=== PATIENT | male | born 1975 ===

== ENCOUNTER 2024-12-09 01:12 | Inpatient (IN) | payer MEDICAID, OTHER ==
[~2024-12-09] VITALS: Ht 185.4 cm; Wt 116.5 kg
--- NOTE | 2024-12-09 01:25 | ED.PDOC ---
History of Present Illness HPI Comments 49 y/o obese M, with a history of diverticulitis, is BIBA from private residence for c/c shortness of breath and lightheadedness. Per EMS report, patient endorses on 3-4x week history of intermittent symptoms. On scene, patient was noted to have been found in AFib RVR, with no endorsement of any cardiac hist ory. Patient also reports on having decrease urine output in addition to said urine being dark in appearance, lately. En route, patient was given 300ml NS bolus. Denial of any chest pain, cough, congestion, wheezing, or further associated symptoms. Time Seen by MD: 01:15 Reviewed Notes: Nurses Notes, Medications, Allergies Allergies: Coded Allergies: NO KNOWN ALLERGIES (Unverified , 12/09/24) Information Source: Patient, Emergency Med Personnel Mode of Arrival: EMS Past Medical History Past Medical History (Other): Diverticulitis All Other Systems: Reviewed and Negative (Comprehensive systems review obtained and negative except for what is stated in the HPI.) Physical Exam General Appearance: No Apparent Distress, Obese HEENT: Normal ENT Inspection, Pharynx Normal, TMs Normal Neck: Full Range of Motion, Non-Tender, Normal, Normal Inspection Respiratory: Chest Non-Tender, Lungs Clear, No Accessory Muscle Use, No Respiratory Distress, Normal Breath Sounds Cardiovascular: Irregular (irregular, irregular rhythm but rate is normal ), No Edema, No JVD, No Murmur, No Gallop, Normal Peripheral Pulses Breast Exam: Deferred Gastrointestinal: No Organomegaly, Non Tender, No Pulsatile Mass, Normal Bowel Sounds, Soft Genitalia: Deferred Pelvic: Deferred Rectal: Deferred Extremities: No calf tenderness, Normal capillary refill, Normal inspection, Normal range of motion, Non-tender, No pedal edema Musculoskeletal : Apperance: Normal Neurologic: Alert, client relations specialist II-XII nml as Tested, No Motor Deficits, Normal Affect, Normal Mood, No Sensory Deficits Cerebellar Function: Normal Reflexes: Normal Skin: Dry, Normal Color, Warm Lymphatic: No Adenopathy Was a procedure done? Was a procedure done?: No EKG EKG : [place]: Normal Cardiac Rhythm: Afib Block: None Hypertrophy: None ST: Normal Differential Dx Considerations may include: New onset of AFib, arrhythmia, electrolyte imbalance, dehydration, among others X-Ray, Labs, Meds, VS Vital Signs Date Time Temp Pulse Resp B/P (MAP) Pulse Ox O2 Delivery O2 Flow Rate FiO2 12/09/24 01:54 155 149/111 12/09/24 01:46 149/114 (126) 12/09/24 01:35 156 149/114 12/09/24 01:27 163 30 97 12/09/24 01:15 98.0 159 22 114/82 100 98.0 12/09/24 01:15 100 Room Air* 0 21 12/09/24 01:13 159 Lab Test 12/09/24 02:25 12/09/24 01:33 Range/Units Troponin I High Sensitivity Pending 76 *H </=54 ng/L White Blood Count 9.2 4.4-10.8 10^3/uL Red Blood Count 4.89 4.5-5.90 10^6/uL Hemoglobin 15.5 13.5-17.5 g/dL Hematocrit 45.6 41.0-53.0 % Mean Corpuscular Volume 93.2 80.0-100.0 fL Mean Corpuscular Hemoglobin 31.7 28.0-32.0 pg Mean Corpuscular Hemoglobin Concent 34.0 32.0-36.0 g/dL Red Cell Distribution Width 13.7 11.8-14.3 % Platelet Count 360 140-450 10^3/uL Mean Platelet Volume 8.7 6.9-10.8 fL Neutrophils (%) (Auto) 70.2 37.0-80.0 % Lymphocytes (%) (Auto) 17.6 10.0-50.0 % Monocytes (%) (Auto) 10.7 0.0-12.0 % Eosinophils (%) (Auto) 0.4 0.0-7.0 % Basophils (%) (Auto) 1.1 0.0-2.0 % Neutrophils # (Auto) 6.5 1.6-8.6 10 ^3/uL Lymphocytes # (Auto) 1.6 0.4-5.4 10 ^3/uL Monocytes # (Auto) 1.0 0-1.3 10 ^3/uL Eosinophils # (Auto) 0 0-0.8 10 ^3/uL Basophils # (Auto) 0.1 0-0.2 10 ^3/uL Nucleated Red Blood Cells 0.0 % Prothrombin Time 15.7 H 9.3-11.8 sec Prothrombin Time INR 1.55 H 0.9-1.15 Activated Partial Thromboplast Time 27.6 24.5-34.5 SEC Sodium Level 138 136-145 mmol/L Potassium Level 4.4 3.5-5.1 mmol/L Chloride Level 106 98-107 mmol/L Carbon Dioxide Level 20 20-31 mmol/L Anion Gap 12 5-15 Blood Urea Nitrogen 12 9-23 mg/dL Creatinine 1.16 0.700-1.30 mg/dL Glomerular Filtration Rate Calc 77 >90 mL/min BUN/Creatinine Ratio 10.3 10.0-20.0 Serum Glucose 132 H 74-106 mg/dL Calcium Level 8.7 8.7-10.4 mg/dL Magnesium Level 2.1 1.6-2.6 mg/dL Total Bilirubin 2.6 H 0.2-1.0 mg/dL Aspartate Amino Transferase (AST) 127 H 13-40 U/L Alanine Aminotransferase (ALT) 101 H 7-40 U/L Alkaline Phosphatase 130 H 46-116 U/L B-Type Natriuretic Peptide 909.46 0-100 pg/mL Total Protein 7.0 5.7-8.2 g/dL Albumin 4.2 3.2-4.8 g/dL Thyroid Stimulating Hormone (TSH) Pending Free Thyroxine (T4) Calculated Pending Current Medications Medications (Trade) Dose Ordered Sig/Fabian Route Start Time Stop Time Status Last Admin Aspirin 162 mg ONCE ONCE PO 12/09/24 01:30 12/09/24 01:31 DC 12/09/24 01:35 Metoprolol Tartrate (Lopressor) 5 mg Q5M IV 12/09/24 01:30 12/09/24 01:41 DC 12/09/24 01:35 [place] [id number] Ph: [phone] DIAGNOSTIC IMAGING Diagnostic Imaging Report : [id number] Signed PATIENT: SANDY EVANS ACCT: [id number] UNIT: [id number] : 1975 LOC: ER ROOM / BED: / AGE / SEX: 49 / M ADM STATUS: REG ER SERVICE 0121 ORDERING PHYSICIAN: GABBIE DANIEL MD PROCEDURE(s): CXRP - CHEST PORTABLE REASON: sob ORDER NUMBER(s): [id number], ACCESSION NUMBER(s): [id number] CHEST RADIOGRAPH Indication: sob Technique: Single frontal view of the chest was obtained COMPARISON: None FINDINGS: Lines and Tubes: None Lungs: Mild diffuse increased prominence of the pulmonary vasculature. No evidence of focal consolidation. Pleura: No effusion. No pneumothorax. Cardiomediastinal contours: Cardiomegaly. Bones: Unremarkable IMPRESSION: 1. Cardiomegaly and mild diffuse increased prominence of the pulmonary vasculature. ATED BY: SHAHEED MINER MD DICTATED DATE/TIME: 12/09/24138 SIGNED BY: SHAHEED MINER MD SIGNED DATE/TIME: 12/09/24138 CC: Time of 1ST Reevaluation: 01:45 Reevaluation 1ST: Unchanged Patient Education/Counseling: Diagnosis, Treatment Family Education/Counseling: No Family Present SEPSIS Sepsis Screen Physician Orders Chest Portable (12/09/24 01:21) Thyroid Stimulating Hormone (12/09/24 01:21) Urinalysis (12/09/24 01:21) Electrocardigram (12/09/24 01:21) Troponin-I Hs (12/09/24 02:21) Troponin-I Hs (12/09/24 04:21) Drug Screen (12/09/24 01:28) Free T4 (Free Thyroxine) (12/09/24 01:28) Amiodarone 360mg/200ml Premix (Nexterone (12/09/24 02:30) Amiodarone 360mg/200ml Premix (Nexterone (12/09/24 08:30) Vital Signs Date Time Temp Pulse Resp B/P (MAP) Pulse Ox O2 Delivery O2 Flow Rate FiO2 12/09/24 01:54 155 149/111 12/09/24 01:46 149/114 (126) 12/09/24 01:35 156 149/114 12/09/24 01:27 163 30 97 12/09/24 01:15 98.0 159 22 114/82 100 98.0 12/09/24 01:15 100 Room Air* 0 21 12/09/24 01:13 159 Laboratory Tests Test 12/09/24 01:33 White Blood Count 9.2 10^3/uL (4.4-10.8) Medications Medications Dose Ordered Sig/Fabian Route Start Time Stop Time Status Last Admin Dose Admin Aspirin 162 mg ONCE ONCE PO 12/09/24 01:30 12/09/24 01:31 DC 12/09/24 01:35 Metoprolol Tartrate 5 mg Q5M IV 12/09/24 01:30 12/09/24 01:41 DC 12/09/24 01:35 Departure 1 Departure Time of Disposition: 02:38 Impression: Primary Impression: Atrial fibrillation with rapid ventricular response Additional Impression: New onset atrial fibrillation Disposition: ADMITTED INPATIENT Admit to: Tele Condition: Guarded Discharged With: Self Comments 49-year-old male with a history of methamphetamine abuse now with new onset atrial fibrillation. He has been tachycardic in the 150s. We tried to give metoprolol but it did not seem to improve the rate much. We started a amiodarone drip. This improved the rate slowly. Patient will need admission for supportive care and further workup. Critical Care Note Critical Care Time?: Yes (35 min-critical care time only) Critical care comment: Total critical care time: Approximately 36 minutes Due to a high probability of clinically significant, life threatening deterioration, the patient required my highest level of preparedness to intervene emergently and I personally spent this critical care time directly and personally managing the patient. This critical care time included obtaining a history; examining the patient; pulse oximetry; ordering and review of studies; arranging urgent treatment with development of a management plan; evaluation of patient's response to treatment; frequent reassessment; and, discussions with other providers. This critical care time was performed to assess and manage the high probability of imminent, life-threatening deterioration that could result in multi-organ failure. It was exclusive of separately billable procedures and treating other patients. Stability Stability form required: No Heart Score Heart Score: Heart Score Response (Comments) Value History Moderate Suspicious 1 EKG Repolarization Disturb 1 Age 45-64 1 Risk Factors No known risk factors 0 Troponin 1-2 x's Normal limit 1 Total 4 I personally scribed for GABBIE DANIEL MD ([email or web address]) on 12/09/24 at 01:25. Electronically submitted by Toi Valero ([email or web address]). I personally scribed for GABBIE DANIEL MD ([email or web address]) on 12/09/24 at 02:03. Electronically submitted by Toi Valero ([email or web address]). GABBIE DANIEL MD Dec 09, 2024 01:25
[2024-12-09] MEDS: METOPROLOL TARTRATE 1MG/1ML-5ML VIAL IV SCH (01:35)
--- NOTE | 2024-12-09 01:41 | DVH ---
CHEST RADIOGRAPH Indication: sob Technique: Single frontal view of the chest was obtained COMPARISON: None FINDINGS: Lines and Tubes: None Lungs: Mild diffuse increased prominence of the pulmonary vasculature. No evidence of focal consolid ation. Pleura: No effusion. No pneumothorax. Cardiomediastinal contours: Cardiomegaly. Bones: Unremarkable IMPRESSION: 1. Cardiomegaly and mild diffuse increased prominence of the pulmonary vasculature.
[2024-12-09 01:58] LABS: Hematocrit 45.6 % (41.0-53.0); Hemoglobin 15.5 g/dL (13.5-17.5); Mean Corpuscular Hemoglobin 31.7 pg (28.0-32.0); Mean Corpuscular Volume 93.2 fL (80.0-100.0); Nucleated Red Blood Cells % 0.0 %
[2024-12-09 02:15] LABS: INR 1.55 (0.9-1.15); Partial Thromboplastin Time 27.6 SEC (24.5-34.5); Prothrombin Time 15.7 sec (9.3-11.8)
[2024-12-09] MEDS: AMIODARONE BOLUS KIT 100 ML IV ONE (02:15)
[2024-12-09 02:30] VITALS: PULSE 145; RESP 25; O2SAT 98
[2024-12-09] MEDS: AMIODARONE 360mg/200mL PREMIX 200 ML IV ONE (02:30)
[2024-12-09 02:34] LABS: Alanine Aminotransferase 101 U/L (7-40); Albumin 4.2 g/dL (3.2-4.8); Alkaline Phosphatase 130 U/L (46-116); Anion Gap 12 (5-15); BUN/Creatinine Ratio 10.3 (10.0-20.0); Blood Urea Nitrogen 12 mg/dL (9-23); Calcium 8.7 mg/dL (8.7-10.4); Carbon Dioxide 20 mmol/L (20-31); Chloride 106 mmol/L (98-107); Glucose 132 mg/dL (74-106); Magnesium 2.1 mg/dL (1.6-2.6); Potassium 4.4 mmol/L (3.5-5.1); Sodium 138 mmol/L (136-145); Total Protein 7.0 g/dL (5.7-8.2)
[2024-12-09 02:35] LABS: Bilirubin, Total 2.6 mg/dL (0.2-1.0)
--- NOTE | 2024-12-09 04:15 | ECG ---
[facility] Test Date: 2024-12-09 Test Time: 01:13:24 Pat Name: SANDY EVANS Department: Room: 0240T Gender: M Data Warehousing Specialist: DIANNE : 1975 Requested By: GABBIE DANIEL Order Number: [id number] Reading MD: Greg Lutz Measurements Intervals [place] Rate: 159 P: 0 HI: 0 QRS: -70 QRSD: 90 T: 88 QT: 316 QTc: 515 Interpretive Statements Atrial fibrillation Ventricular premature complex Left anterior fascicular block Probable anteroseptal infarct, old Prolonged QT interval Electronically Signed On 12-12-2024 15:03:31 PDT by Greg Lutz Please click the below link to view image of tracing.
[2024-12-09] MEDS ORDERED: NITROGLYCERIN 0.4 MG SL TAB SL PRN (04:30)
[2024-12-09] MEDS ORDERED: ACETAMINOPHEN 325 MG TAB PO PRN (04:30)
[2024-12-09] MEDS: AMIODARONE 150mg/100ml PREMIX BAG (BOLUS) IV ONE (04:40)
--- NOTE | 2024-12-09 04:41 | DVHHP2 ---
History of Present Illness Reason for Visit: Shortness for breath History of Present Illness 49-year-old male presents for evaluation of shortness for breath. Patient reports a three-week history of worsening shortness for breath with associated palpitations. Patient reports not seeing a primary doctor in over 10 years. He only reports a history of diverticulitis. Currently denies chest pain. On arrival patient was noted to be in AFib with RVR in the 150s. Past Medical History Diverticulitis Past Surgical History Denies Family History Noncontributory Review of Systems Review of Systems Review of systems are negative otherwise addressed in HPI. Allergies: Coded Allergies: NO KNOWN ALLERGIES (Unverified , 12/09/24) Medications Current Medications Medications Dose Ordered Sig/Fabian Route Start Time Stop Time Status Last Admin Dose Admin Amiodarone HCL/ Dextrose 200 ml @ 16.66 mls/ hr Q12H IV 12/09/24 08:30 Furosemide 20 mg BIDD IV 12/09/24 06:00 Lisinopril 10 mg DAILY PO 12/09/24 10:00 Metoprolol Tartrate 25 mg BID PO 12/09/24 22:00 Aspirin 162 mg DAILY PO 12/09/24 10:00 Ondansetron HCl 4 mg Q4HP PRN IV 12/09/24 04:30 Acetaminophen 650 mg Q6HP PRN PO 12/09/24 04:30 Nitroglycerin 0.4 mg Q5MINP PRN SL 12/09/24 04:30 Morphine Sulfate 2 mg Q30M PRN IV 12/09/24 04:30 Apixaban 5 mg BID PO 12/09/24 10:00 Exam Vital Signs Vital Signs Date Time Temp Pulse Resp B/P (MAP) Pulse Ox O2 Delivery O2 Flow Rate FiO2 12/09/24 04:15 123 29 116/97 (103) 96 12/09/24 01:15 98.0 98.0 12/09/24 01:15 Room Air* 0 21 Exam Gen: 49-year-old male in mild distress Skin: Warm, dry, normal color and texture, no rash. HEENT: Normocephalic atraumatic, mucous membranes moist and pink. Neck: Cervical and supraclavicular nodes normal without enlargement, trachea is midline, thyroid gland is normal without masses. Pulmonary: Clear to auscultation and percussion bilaterally. Cardiac: Irregular rhythm Abdomen: Soft, nontender, nondistended, bowel sounds present all 4 quadrants, no guarding, no rigidity, no organomegaly. Extremities: No cyanosis, clubbing, no edema Neuro: Cranial nerves II through XII grossly intact, normal affect and speech, no focal motor deficits. Labs/Xrays ORDERING PHYSICIAN: GABBIE DANIEL MD PROCEDURE(s): CXRP - CHEST PORTABLE REASON: sob ORDER NUMBER(s): [id number], ACCESSION NUMBER(s): [id number] CHEST RADIOGRAPH Indication: sob Technique: Single frontal view of the chest was obtained COMPARISON: None FINDINGS: Lines and Tubes: None Lungs: Mild diffuse increased prominence of the pulmonary vasculature. No evidence of focal consolidation. Pleura: No effusion. No pneumothorax. Cardiomediastinal contours: Cardiomegaly. Bones: Unremarkable IMPRESSION: 1. Cardiomegaly and mild diffuse increased prominence of the pulmonary vasculatu re. Labs Test 12/09/24 02:25 12/09/24 01:33 Range/Units Troponin I High Sensitivity 80 *H </=54 ng/L White Blood Count 9.2 4.4-10.8 10^3/uL Red Blood Count 4.89 4.5-5.90 10^6/uL Hemoglobin 15.5 13.5-17.5 g/dL Hematocrit 45.6 41.0-53.0 % Mean Corpuscular Volume 93.2 80.0-100.0 fL Mean Corpuscular Hemoglobin 31.7 28.0-32.0 pg Mean Corpuscular Hemoglobin Concent 34.0 32.0-36.0 g/dL Red Cell Distribution Width 13.7 11.8-14.3 % Platelet Count 360 140-450 10^3/uL Mean Platelet Volume 8.7 6.9-10.8 fL Neutrophils (%) (Auto) 70.2 37.0-80.0 % Lymphocytes (%) (Auto) 17.6 10.0-50.0 % Monocytes (%) (Auto) 10.7 0.0-12.0 % Eosinophils (%) (Auto) 0.4 0.0-7.0 % Basophils (%) (Auto) 1.1 0.0-2.0 % Neutrophils # (Auto) 6.5 1.6-8.6 10 ^3/uL Lymphocytes # (Auto) 1.6 0.4-5.4 10 ^3/uL Monocytes # (Auto) 1.0 0-1.3 10 ^3/uL Eosinophils # (Auto) 0 0-0.8 10 ^3/uL Basophils # (Auto) 0.1 0-0.2 10 ^3/uL Nucleated Red Blood Cells 0.0 % Prothrombin Time 15.7 H 9.3-11.8 sec Prothrombin Time INR 1.55 H 0.9-1.15 Activated Partial Thromboplast Time 27.6 24.5-34.5 SEC Sodium Level 138 136-145 mmol/L Potassium Level 4.4 3.5-5.1 mmol/L Chloride Level 106 98-107 mmol/L Carbon Dioxide Level 20 20-31 mmol/L Anion Gap 12 5-15 Blood Urea Nitrogen 12 9-23 mg/dL Creatinine 1.16 0.700-1.30 mg/dL Glomerular Filtration Rate Calc 77 >90 mL/min BUN/Creatinine Ratio 10.3 10.0-20.0 Serum Glucose 132 H 74-106 mg/dL Calcium Level 8.7 8.7-10.4 mg/dL Magnesium Level 2.1 1.6-2.6 mg/dL Total Bilirubin 2.6 H 0.2-1.0 mg/dL Aspartate Amino Transferase (AST) 127 H 13-40 U/L Alanine Aminotransferase (ALT) 101 H 7-40 U/L Alkaline Phosphatase 130 H 46-116 U/L B-Type Natriuretic Peptide 909.46 0-100 pg/mL Total Protein 7.0 5.7-8.2 g/dL Albumin 4.2 3.2-4.8 g/dL Thyroid Stimulating Hormone (TSH) 1.24 0.55-4.78 uIU/mL SEPSIS Sepsis Screen Date sepsis recognized/suspect: Dec 09, 2024 Time Sepsis recognized/suspect: 0115 Recent Procedure: No On Antibiotic Therapy: No Respiratory Rate >20: Yes Heart Rate >90: Yes Temp<36 C (96.8 F) or >38.3 C: No SBP <90 or MAP <65 mmHG: No New Acute Mental Status Change: No Is the patient on CPAP, BIPAP,: No Physician Orders Chest Portable (12/09/24 01:21) Troponin-I Hs (12/09/24 04:21) Free T4 (Free Thyroxine) (12/09/24 01:28) Amiodarone 360mg/200ml Premix (Nexterone (12/09/24 02:30) Amiodarone 360mg/200ml Premix (Nexterone (12/09/24 08:30) Drug Screen (12/09/24 04:18) Urinalysis (12/09/24 04:18) D-Dimer (12/09/24 04:18) Furosemide Injection (Lasix Injection) (12/09/24 06:00) * Cardiology Consult (12/09/24 04:18) LIVER (12/09/24 04:20) Lisinopril Tablet (Zestril Tablet) (12/09/24 10:00) Metoprolol Tartrate Tablet (Lopressor Ta (12/09/24 22:00) Aspirin Tablet (12/09/24 10:00) Lipid Panel (12/09/24 04:20) Admit (12/09/24 04:20) Ondansetron Hcl (Zofran) (12/09/24 04:30) Complete Blood Count (12/10/24 04:00) Comprehensive Metabolic Panel (12/10/24 04:00) Cardiac Diet-2gna,Lofat,Lochol (12/09/24 Breakfast) Echo 2d Mode Cardiac Dop (12/09/24 04:20) Condition: Serious (12/09/24 04:20) Acetaminophen Tablet (Tylenol Tablet) (12/09/24 04:30) Bedrest With Bathroom Privileg (12/09/24 04:20) Nitroglycerin Sublingual (Ntrostat Subli (12/09/24 04:30) Morphine Sulfate Injection (12/09/24 04:30) Stat Ekg For Chest Pain (12/09/24 04:20) Notify Of Changes From Base (12/09/24 04:20) Boat Builder For 24 Hours (12/09/24 04:20) Emergency Dysrhythmia Protocol (12/09/24 04:20) Rhythm Strips Once Every Shift (12/09/24 04:20) Oxygen By Nasal Cannula (12/09/24 04:20) Apixaban (Eliquis) (12/09/24 10:00) Metoprolol Tartrate Tablet (Lopressor Ta (12/09/24 04:45) Vital Signs Date Time Temp Pulse Resp B/P (MAP) Pulse Ox O2 Delivery O2 Flow Rate FiO2 12/09/24 04:15 123 29 116/97 (103) 96 12/09/24 01:54 155 149/111 12/09/24 01:46 149/114 (126) 12/09/24 01:40 135 114/76 12/09/24 01:35 156 149/114 12/09/24 01:27 163 30 97 12/09/24 01:15 98.0 159 22 114/82 100 98.0 12/09/24 01:15 100 Room Air* 0 21 12/09/24 01:13 159 Laboratory Tests Test 12/09/24 01:33 White Blood Count 9.2 10^3/uL (4.4-10.8) Medications Medications Dose Ordered Sig/Fabian Route Start Time Stop Time Status Last Admin Dose Admin Amiodarone HCl 100 ml @ 600 mls/hr ONCE ONCE IV 12/09/24 02:15 12/09/24 02:24 DC 12/09/24 02:15 600 MLS/HR Amiodarone HCL/ Dextrose 200 ml @ 33.33 mls/ hr ONCE ONCE IV 12/09/24 02:30 12/09/24 08:30 12/09/24 02:30 33.33 MLS/HR Aspirin 162 mg ONCE ONCE PO 12/09/24 01:30 12/09/24 01:31 DC 12/09/24 01:35 162 MG Metoprolol Tartrate 5 mg Q5M IV 12/09/24 01:30 12/09/24 01:41 DC 12/09/24 01:35 5 MG Assessment/Plan Assessment/Plan Assessment AFib with RVR Possible heart failure Elevated troponin, demand ischemia Transaminitis Obesity Plan Admit the patient to [facility] to the hospitalist Continue amiodarone ACS protocol Cardiology consult Echocardiogram pending D-dimer pending Continue treatment per orders Total critical care time excluding procedures performed this 50 minutes. Plan discussed with: Patient My Orders Orders - LONG MORRIS AGACNP Procedure Category Date Status Time Drug Screen LAB 12/09/24 Logged 04:18 Urinalysis LAB 12/09/24 Logged 04:18 D-Dimer LAB 12/09/24 In Process 04:18 Furosemide Injection PHA 12/09/24 In Process (Lasix Injection) 06:00 * Cardiology Consult CONS 12/09/24 Transmitted 04:18 LIVER US 12/09/24 Logged 04:20 Lisinopril Tablet PHA 12/09/24 In Process (Zestril Tablet) 10:00 Metoprolol Tartrate PHA 12/09/24 In Process Tablet (Lopressor Ta 22:00 Aspirin Tablet PHA 12/09/24 In Process 10:00 Lipid Panel LAB 12/09/24 Logged 04:20 Admit ADMIT 12/09/24 Transmitted 04:20 Ondansetron Hcl PHA 12/09/24 In Process (Zofran) 04:30 Complete Blood Count LAB 12/10/24 Verified 04:00 Comprehensive LAB 12/10/24 Verified Metabolic Panel 04:00 Cardiac DIET 12/09/24 Transmitted Diet-2gna,Lofat,Lochol Breakfast Echo 2d Mode Cardiac US 12/09/24 Logged DOP 04:20 Condition: Serious [facility] 12/09/24 In Process 04:20 Acetaminophen Tablet [facility] 12/09/24 In Process (Tylenol Tablet) 04:30 Bedrest With Bathroom [facility] 12/09/24 In Process Privileg 04:20 Nitroglycerin [facility] 12/09/24 In Process Sublingual (Ntrostat 04:30 Morphine Sulfate [facility] 12/09/24 In Process Injection 04:30 Stat Ekg For Chest [facility] 12/09/24 In Process Pain 04:20 Notify Md Of Changes [facility] 12/09/24 In Process From Base 04:20 Boat Builder For [facility] 12/09/24 In Process 24 Hours 04:20 Emergency Dysrhythmia [facility] 12/09/24 In Process Protocol 04:20 Rhythm Strips Once [facility] 12/09/24 In Process Every Shift 04:20 Oxygen By Nasal RT 12/09/24 Transmitted Cannula 04:20 Apixaban (Eliquis) [facility] 12/09/24 In Process 10:00 Metoprolol Tartrate [facility] 12/09/24 In Process Tablet (Lopressor Ta 04:45 Date of Service: Dec 09, 2024 Billing Provider: LONG MORRIS Common Visit Codes: [id number] CARE 30-74 MIN LONG MORRIS Dec 09, 2024 04:41
[2024-12-09 04:58] LABS: Triglycerides 113 mg/dL (< 150)
[2024-12-09 05:00] LABS: Cholesterol 100 mg/dL (< 200)
[2024-12-09 05:01] LABS: HDL Cholesterol 16 mg/dL (40-59)
[2024-12-09] MEDS: METOPROLOL TARTRATE 25 MG TAB PO ONE ×2 (05:10→22:55)
[2024-12-09] MEDS: FUROSEMIDE 20 MG/2 ML VIAL IV SCH (05:10)
[2024-12-09] MEDS: MORPHINE SULFATE INJ 2 MG/ml SYRG IV PRN ×2 (06:33→13:51)
[2024-12-09 07:15] VITALS: PULSE 119; RESP 36; O2SAT 95
--- NOTE | 2024-12-09 08:01 | DVH ---
Technique: Real-time ultrasound imaging of the abdomen was performed with grayscale and color Doppler . Indication: Transaminitis Comparison: None Findings: Liver measures 23 cm. It is increased in echogenicity and echotexture without focal mass. Portal vei n is normal in caliber and demonstrates normal hepatopetal flow. Gallbladder demonstrates cholelithiasis. Gallbladder wall edema. Gallbladder wall thickening to 12 m m. The common bile duct is nonvisualized. The right kidney measures 10.3 cm. There is no hydronephrosis or sonographic evidence of nephrolithia sis. The visualized portion of the pancreas is unremarkable The visualized portion of the IVC is unremarkable. Impression: Cholelithiasis with gallbladder wall edema and thickening, concerning for cholecystitis. Recommend H KEITH scan, surgical consultation. Echogenic liver which can be seen with hepatic steatosis, cirrhosis.
[2024-12-09] MEDS: AMIODARONE 360mg/200mL PREMIX 200 ML IV SCH (08:30)
[2024-12-09 08:44] LABS: Amphetamine Screen, Urine Pos (NEGATIVE); Barbiturate Scree,Urine Neg (NEGATIVE); Opiate Scree,Urine Neg (NEGATIVE); Phencyclidine Screen, Urine Neg (NEGATIVE)
[2024-12-09 08:45] LABS: Benzodiazephine Screen, Urine Neg (NEGATIVE); Cannabinoid Screen, Urine Neg (NEGATIVE); Cocaine Screen, Urine Neg (NEGATIVE)
--- NOTE | 2024-12-09 08:52 | DVHINCON2 ---
Date Seen: Dec 09, 2024 Referring Physician ANAHI Hawthorne Reason for Consultation A-fib History of Present Illness This is a 49-year-old man who presented to the emergency room via EMS with a chief complaint of shortness of breath for three weeks. The patient complains of progressive shortness of breath associated with FRANCIS, PND, orthopnea, anuria, and the dark urine discoloration. Upon EMS arrival he was found in an atrial fibrillation rhythm with rapid ventricular rate for which he was medicated with NS x300 mLs IV. Upon arrival to the emergency room he underwent a 12 lead electrocardiogram revealing a atrial fibrillation rhythm with rapid ventricular rate at 159 bpm for which the patient was initiated on an amiodarone drip per pharmacy protocol. Troponin levels peaked at 80 ng/L. Denies a previous history of tachyarrhythmias. Admits to recent methamphetamine use with latest use two weeks ago. Significant medical history only includes diverticulitis and methamphetamine use for > 10 years. Past Medical History Past medical history reviewed. No other significant than mentioned above. Past Surgical History Past surgical history reviewed. No other significant than mentioned above. Family History Family history reviewed. Father with permanent pacemaker. Social History Denies the use of alcohol or tobacco use. Admits to frequent methamphetamine use. Allergies: Coded Allergies: NO KNOWN ALLERGIES (Unverified , 12/09/24) Home Meds Denies any home medications. Current Medications Current Medications Medications (Trade) Dose Ordered Sig/Fabian Route PRN Reason Start Time Stop Time Status Last Admin Metoprolol Tartrate (Lopressor) 5 mg Q5M IV 12/09/24 01:30 12/09/24 01:41 DC 12/09/24 01:35 Amiodarone HCL/ Dextrose 200 ml @ 16.66 mls/ hr Q12H IV 12/09/24 08:30 12/09/24 08:30 Furosemide (Lasix Injection) 20 mg BIDD IV 12/09/24 06:00 12/09/24 05:10 Lisinopril (Zestril Tablet) 10 mg DAILY PO 12/09/24 10:00 Metoprolol Tartrate (Lopressor Tablet) 25 mg BID PO 12/09/24 22:00 Aspirin 162 mg DAILY PO 12/09/24 10:00 Ondansetron HCl (Zofran) 4 mg Q4HP PRN IV NAUSEA / VOMITING 12/09/24 04:30 Acetaminophen (Tylenol Tablet) 650 mg Q6HP PRN PO PAIN SCALE 1-3 OR TEMP>100.4 12/09/24 04:30 Nitroglycerin (Ntrostat Sublingual) 0.4 mg Q5MINP PRN SL FOR CHEST PAIN 12/09/24 04:30 Morphine Sulfate 2 mg Q30M PRN IV FOR CHEST PAIN 12/09/24 04:30 12/09/24 06:33 Apixaban (Eliquis) 5 mg BID PO 12/09/24 10:00 Review of Systems Constitutional: No symptom reported Ears, Nose, & Throat: No symptom reported Eyes: No symptom reported Neurological: No symptoms reported Pulmonary/Respiratory: SOB Cardiovascular: No symptom reported Gastrointestinal: No symptom reported Genitourinary: No symptom reported Musculoskeletal: No symptom reported Skin: No symptom reported Psychiatric: No symptom reported Endocrine: No symptom reported Hemotologic/Lymphatic: No symptom reported Vital Signs Vital Signs Date Time Temp Pulse Resp B/P (MAP) Pulse Ox O2 Delivery O2 Flow Rate FiO2 12/09/24 08:00 118 12/09/24 07:34 36 109/85 12/09/24 07:15 97.8 95 97.8 12/09/24 07:15 Nasal Cannula* 2 28 Physical Exam General Appearance: Cooperative. Well developed. Obese. In no acute distress Head Exam: Normal inspection Neck Exam: Normal inspection. Non-tender. Normal alignment Pulmonary/Respiratory: Chest non-tender. Crackles to bilateral breath sounds Cardiovascular/Chest: Irregularly irregular rate and rhythm. AFib with low 100s bpm. No murmurs. No JVD. Peripheral Pulses: 2+ Radial (R). 2+ Radial (L). 2+ Pedal (R). 2+ Pedal (L) Abdominal Exam: Normal bowel sounds. Ankle Exam: Negative ankle edema Lower extremities: Negative lower extremity edema Neuro/Mental Status: A&O x4. Coherent Thoughts/Psych: Normal thought pattern. Anxious Appearance: In no acute distress Skin Exam: Hyperpigmented RLE [id number]. Warm. Dry Labs/Diagnostic Data Labs Test 12/09/24 07:35 12/09/24 04:28 12/09/24 01:33 Range/Units Urine Opiates Screen Neg NEGATIVE Urine Fentanyl Screen Neg NEGATIVE Urine Barbiturates Screen Neg NEGATIVE Urine Phencyclidine Screen Neg NEGATIVE Urine Amphetamines Screen Pos NEGATIVE Urine Benzodiazepines Screen Neg NEGATIVE Urine Cocaine Screen Neg NEGATIVE Urine Cannabinoids Screen Neg NEGATIVE Troponin I High Sensitivity 62 *H </=54 ng/L Triglycerides Level 113 < 150 mg/dL Cholesterol Level 100 < 200 mg/dL LDL Cholesterol 77 < 100 mg/dL HDL Cholesterol 16 L 40-59 mg/dL White Blood Count 9.2 4.4-10.8 10^3/uL Red Blood Count 4.89 4.5-5.90 10^6/uL Hemoglobin 15.5 13.5-17.5 g/dL Hematocrit 45.6 41.0-53.0 % Mean Corpuscular Volume 93.2 80.0-100.0 fL Mean Corpuscular Hemoglobin 31.7 28.0-32.0 pg Mean Corpuscular Hemoglobin Concent 34.0 32.0-36.0 g/dL Red Cell Distribution Width 13.7 11.8-14.3 % Platelet Count 360 140-450 10^3/uL Mean Platelet Volume 8.7 6.9-10.8 fL Neutrophils (%) (Auto) 70.2 37.0-80.0 % Lymphocytes (%) (Auto) 17.6 10.0-50.0 % Monocytes (%) (Auto) 10.7 0.0-12.0 % Eosinophils (%) (Auto) 0.4 0.0-7.0 % Basophils (%) (Auto) 1.1 0.0-2.0 % Neutrophils # (Auto) 6.5 1.6-8.6 10 ^3/uL Lymphocytes # (Auto) 1.6 0.4-5.4 10 ^3/uL Monocytes # (Auto) 1.0 0-1.3 10 ^3/uL Eosinophils # (Auto) 0 0-0.8 10 ^3/uL Basophils # (Auto) 0.1 0-0.2 10 ^3/uL Nucleated Red Blood Cells 0.0 % Prothrombin Time 15.7 H 9.3-11.8 sec Prothrombin Time INR 1.55 H 0.9-1.15 Activated Partial Thromboplast Time 27.6 24.5-34.5 SEC D-Dimer, Quantitative 0.54 H 0.0-0.49 mg/L FEU Sodium Level 138 136-145 mmol/L Potassium Level 4.4 3.5-5.1 mmol/L Chloride Level 106 98-107 mmol/L Carbon Dioxide Level 20 20-31 mmol/L Anion Gap 12 5-15 Blood Urea Nitrogen 12 9-23 mg/dL Creatinine 1.16 0.700-1.30 mg/dL Glomerular Filtration Rate Calc 77 >90 mL/min BUN/Creatinine Ratio 10.3 10.0-20.0 Serum Glucose 132 H 74-106 mg/dL Calcium Level 8.7 8.7-10.4 mg/dL Magnesium Level 2.1 1.6-2.6 mg/dL Total Bilirubin 2.6 H 0.2-1.0 mg/dL Aspartate Amino Transferase (AST) 127 H 13-40 U/L Alanine Aminotransferase (ALT) 101 H 7-40 U/L Alkaline Phosphatase 130 H 46-116 U/L B-Type Natriuretic Peptide 909.46 0-100 pg/mL Total Protein 7.0 5.7-8.2 g/dL Albumin 4.2 3.2-4.8 g/dL Thyroid Stimulating Hormone (TSH) 1.24 0.55-4.78 uIU/mL Assessment De Horacio decompensated heart failure, NYHA Class III Atrial fibrillation with rapid ventricular rate, Stage III, newly diagnosed NSTEMI likely type II secondary to above Rule out acute cholecystitis Elevated LFTs Methamphetamine abuse Obesity Plan/Recommendation (Dr. Lutz) We will continue further cardiac evaluation with a transthoracic echocardiogram to evaluate cardiac function. Discontinue antiarrhythmic therapy (contraindicated) and continue rate control with metoprolol. Transition to therapeutic Lovenox given possible acute cholecystitis. Resume DOAC therapy when appropriate (?[id number] Score, HAS BLED Score 1 point). Continue preload and afterload reduction, strict I&Os, daily weight, and fluid restriction. Consider HIDA Scan. Further orders per clinical course. Thank you for allowing us to participate in this patient's care. Please call if you have any questions or concerns. Critical care time: 40 min. This medical document was created using an electronic medical record system with voice recognition software and computerized dictation system. Although this document has been carefully reviewed, there might still be some phonetic and typographical errors. Occasional wrong-word or ``sound-alike substitutions may have occurred due to the inherent limitations of voice recognition software. These areas are purely typographical due to imperfections of the software programs and do not reflect any compromise in the patient's medical care. Please read the chart carefully and recognize, using context, where these substitutions have occurred. Plan discussed with: Patient, Other NYHA Physical activity limitations: Class3(Marked) ordinary (activity causes symtoms) Date of Service: Dec 09, 2024 Billing Provider: DWAYNE TATUM Cardiology Common Codes: 02389-[id number] CARE 30-74 MIN DWAYNE TATUM Dec 09, 2024 08:52
[2024-12-09 09:14] LABS: Urine Budding Yeast OCCASIONAL /hpf (None Seen); Urine Protein, UAD 2+ (Negative)
[2024-12-09] MEDS: FUROSEMIDE 40 MG/4 ML VIAL IV ONE ×2 (09:18→14:28)
--- NOTE | 2024-12-09 09:39 | DVHPNRES ---
Progress Note Date Seen: Dec 09, 2024 Resident Creating Document: JESSICA SIEGEL RESIDENT Medical Necessity Reason Pt with a Central, PICC or Fol: Yes The following are medically ne: Mason Catheter Reason for mason catheter: Strict I&O Subjective Review of Systems This is a 49-year-old male presents for evaluation of shortness for breath. Patient reports a three-week history of worsening shortness for breath with associated palpitations. Patient reports not seeing a primary doctor in over 10 years. He only reports a history of diverticulitis. Currently denies chest pain. On arrival patient was noted to be in AFib with RVR in the 150s. Past Medical History: Diverticulitis Past Surgical History: Laparotomy be due to diverticular perforation 20 years ago in [place] . Family History: mother history of bone cancer, parents- CAD Social history: denies any tobacco smoking but patient quickly smoking amphetamine and last smokes 2 weeks ago; no alcohol use PCP: not selected Patient seen and evaluated on bedside. No SOB, chest pain, headache, fever noted. Mason catheter placed. Lab shows Hyperkalemia , hyperkalemia protocol initiated, repeated potassium came back normal limits. EKG shows no ST-elevation or T-wave changes. Objective vital signs Vital Sign Date Time Temp Pulse Resp B/P (MAP) Pulse Ox O2 Delivery O2 Flow Rate FiO2 12/09/24 09:18 112/90 12/09/24 08:00 118 12/09/24 07:34 36 12/09/24 07:15 97.8 95 97.8 12/09/24 07:15 Nasal Cannula* 2 28 medications Current Medications Medications Dose Ordered Sig/Fabian Route Start Time Stop Time Status Last Admin Dose Admin Metoprolol Tartrate 25 mg BID PO 12/09/24 22:00 Aspirin 162 mg DAILY PO 12/09/24 10:00 Ondansetron HCl 4 mg Q4HP PRN IV 12/09/24 04:30 Acetaminophen 650 mg Q6HP PRN PO 12/09/24 04:30 Nitroglycerin 0.4 mg Q5MINP PRN SL 12/09/24 04:30 Morphine Sulfate 2 mg Q30M PRN IV 12/09/24 04:30 12/09/24 06:33 2 MG Apixaban 5 mg BID PO 12/09/24 10:00 Furosemide 40 mg BIDD IV 12/09/24 18:00 Examination Gen: 49-year-old male in mild distress, Mason catheter placed and clear urine noted Skin: Warm, dry, normal color and texture, no rash. HEENT: Normocephalic atraumatic, mucous membranes moist and pink. Neck: Cervical and supraclavicular nodes normal without enlargement, trachea is midline, thyroid gland is normal without masses. Pulmonary: Clear to auscultation and percussion bilaterally. Cardiac: Irregularly irregular rhythm with tachycardia Skin: Left lower quadrant abdominal scars Abdomen: Soft, nontender, nondistended, bowel sounds present all 4 quadrants, no guarding, no rigidity, no organomegaly. Extremities: No cyanosis, clubbing, no edema Neuro: Cranial nerves II through XII grossly intact, normal affect and speech, no focal motor deficits. laboratory and microbiology Laboratory Tests 12/09/24 01:33 Test 12/09/24 01:33 Range/Units Serum Glucose 132 H 74-106 mg/dL Labs and/or images reviewed: Labs reviewed by me, Image(s) reviewed by me Problem List/Assessment/Plan Problem List/Assessment/Plan Assessment and plan: AFib with RVR, stage III newly diagnosed X- ray shows cardiomegaly and mild diffuse increased prominence of pulmonary vasculature. [id number] Score -2, start anticoagulant enoxaparin 110 mg sc q.12h Cardiology consult appreciated Discontinue antiarrhythmic therapy with amiodarone (contraindicated until intracardiac thrombus can be rule out) and continue rate control with metoprolol De Horacio decompensated heart failure, NYHA Class III due to probably meth abuse BNP 909.46 furosemide 40 mg IV b.i.d. Pending formal ECHO reading: low EF prelim hold on GDMT due to sepsis and hyperkalemia bb given Hyperkalemia Potassium 7.1, no changes on EKG hyperkalemia protocol started: insulin, bicarb and Lokelma ; Repeat potassium 5.1 monitor labs Sepsis due to Cholelithiasis with cholecystitis liver ultrasound: Cholelithiasis with gallbladder wall edema and thickening, concerning for cholecystitis. Echogenic liver which can be seen with hepatic steatosis, cirrhosis. surgery consult appreciated Due to AFib with RVR and HF and relatively high risks of perioperative cardiac event. should treated conservatively until cardiac work is completed. surgery recommend MRCP, hold on because the patient stated he had metal in orbital area. Rule out foreign body in orbital area x-ray ordered to rule out metal in the orbital area. NSTEMI likely type II secondary demand ischemia in the setting of AFib with RVR and new onset decompensated heart failure Transaminitis Avoid hepatotoxic drugs Monitor LFT Methamphetamine use disorder U tox positive for amphetamine Counseled on methamphetamine use cessation for 22 minutes Hepatic steatosis Acute hepatitis panel Ho of Diverticulitis s/p laparotomy Prediabetic HbA1c 6.1 Obesity, BMI 33.3 Lifestyle modification GI prophylaxis: Protonix DVT prophylaxis: Therapeutic Lovenox Goals of care discussed with the patient for 20 minutes: Full code status. Case discussed with Dr. Chapman Plan discussed with: Patient, Other (Nurse) Addendum Addendum Addendum I was physically present for the suarez portions of the service provided to patient by THE RESIDENT. I have reviewed the documentation, discussed the case with resident and agree with the resident's documentation except as noted. Also the patient's clinical case was discussed with the patient's nurse. This medical document was created using an electronic medical record system with computerized dictation system. Although this document has been carefully reviewed, there might still be some phonetic and typographical errors. These areas are purely typographical due to imperfections of the software programs, and do not reflect any compromise in the patient's medical care. Late signature. Date of Service: Dec 09, 2024 Billing Provider: MARY CHAPMAN MD Common Visit Codes: [id number] INP/OBS CARE(HIGH) Secondary Visit Codes: 13090-PUYAZ CHNG SMOKING >10MIN (Counseled for 22 minutes on methamphetamine use cessation), [id number] CARE PLAN 30 MINUTES (20 minutes) JESSICA SIEGEL RESIDENT Dec 09, 2024 09:39 MICHELLE CAMPO RESIDENT Dec 09, 2024 23:35 MARY CHAPMAN MD Dec 10, 2024 13:57
[2024-12-09] MEDS ORDERED: APIXABAN 5 MG TAB PO SCH (10:00)
[2024-12-09] MEDS ORDERED: LISINOPRIL 5 MG TAB PO SCH (10:00)
[2024-12-09] MEDS: ENOXAPARIN SOD 100 MG/1 ML SYRINGE SC SCH (10:21)
[2024-12-09 10:25] LABS: Base Excess -15.3 mmol/L (-2.0-3.0)
[2024-12-09 10:40] LABS: Lipase 51 U/L (12-53)
[2024-12-09 10:42] LABS: Amylase 55 U/L (30-118)
[2024-12-09 11:45] LABS: Hematocrit 52.0 % (41.0-53.0); Hemoglobin 16.7 g/dL (13.5-17.5); Mean Corpuscular Hemoglobin 30.9 pg (28.0-32.0); Mean Corpuscular Volume 96.5 fL (80.0-100.0); Nucleated Red Blood Cells % 0.1 %
[2024-12-09 12:08] LABS: Albumin 4.2 g/dL (3.2-4.8); Anion Gap 19 (5-15); BUN/Creatinine Ratio 8.2 (10.0-20.0); Blood Urea Nitrogen 16 mg/dL (9-23); Calcium 9.1 mg/dL (8.7-10.4); Chloride 102 mmol/L (98-107); Glucose 89 mg/dL (74-106); Sodium 137 mmol/L (136-145); Total Protein 6.9 g/dL (5.7-8.2)
[2024-12-09 12:10] LABS: Alanine Aminotransferase 511 U/L (7-40); Alkaline Phosphatase 143 U/L (46-116); Bilirubin, Total 3.1 mg/dL (0.2-1.0); Carbon Dioxide 16 mmol/L (20-31)
[2024-12-09 12:11] LABS: Potassium 7.0 mmol/L (3.5-5.1)
--- NOTE | 2024-12-09 12:42 | DVHINCON2 ---
Date of service: Dec 09, 2024 History of Present Illness 49-year-old male with a history methamphetamine use admitted secondary to shortness of breath for past three weeks. Patient stands any abdominal pain. On admission to the emergency room, patient was noted to have atrial fibrillation with rapid ventricular rate 159 beats per minute and was started an amiodarone drip. His troponins were also elevated. Past Medical History History of diverticulitis. Otherwise unremarkable except for his methamphetamine use. Past Surgical History No abdominal surgeries. Patient did have what what sounds like a percutaneous drainage of diverticular abscess in the past. Family History Noncontributory Social History Last methamphetamine use was two weeks ago. Denies alcohol or tobacco. Allergies: Coded Allergies: NO KNOWN ALLERGIES (Unverified , 12/09/24) Current Medications Current Medications Medications (Trade) Dose Ordered Sig/Fabian Route PRN Reason Start Time Stop Time Status Last Admin Metoprolol Tartrate (Lopressor) 5 mg Q5M IV 12/09/24 01:30 12/09/24 01:41 DC 12/09/24 01:35 Amiodarone HCL/ Dextrose 200 ml @ 16.66 mls/ hr Q12H IV 12/09/24 08:30 12/09/24 08:55 DC 12/09/24 08:30 Furosemide (Lasix Injection) 20 mg BIDD IV 12/09/24 06:00 12/09/24 08:56 DC 12/09/24 05:10 Lisinopril (Zestril Tablet) 10 mg DAILY PO 12/09/24 10:00 12/09/24 08:55 DC Metoprolol Tartrate (Lopressor Tablet) 25 mg BID PO 12/09/24 22:00 Aspirin 162 mg DAILY PO 12/09/24 10:00 12/09/24 09:52 DC Ondansetron HCl (Zofran) 4 mg Q4HP PRN IV NAUSEA / VOMITING 12/09/24 04:30 Acetaminophen (Tylenol Tablet) 650 mg Q6HP PRN PO PAIN SCALE 1-3 OR TEMP>100.4 12/09/24 04:30 Nitroglycerin (Ntrostat Sublingual) 0.4 mg Q5MINP PRN SL FOR CHEST PAIN 12/09/24 04:30 12/09/24 11:44 DC Morphine Sulfate 2 mg Q30M PRN IV FOR CHEST PAIN 12/09/24 04:30 12/09/24 11:44 DC 12/09/24 06:33 Apixaban (Eliquis) 5 mg BID PO 12/09/24 10:00 12/09/24 10:04 DC Furosemide (Lasix Injection) 40 mg BIDD IV 12/09/24 18:00 Enoxaparin Sodium (Lovenox) 110 mg Q12HR SC 12/09/24 10:00 12/09/24 10:21 Ketorolac Tromethamine (Toradol Injection) 15 mg Q6HPRN PRN IV MODERATE PAIN (4-6 PAIN SCALE) 12/09/24 11:45 12/14/24 11:44 UNV Morphine Sulfate 1 mg Q6HP PRN IV SEVERE PAIN (7-10 PAIN SCALE) 12/09/24 11:45 UNV Vital Signs Vital Signs Date Time Temp Pulse Resp B/P (MAP) Pulse Ox O2 Delivery O2 Flow Rate FiO2 12/09/24 09:18 112/90 12/09/24 09:15 115 38 94 12/09/24 07:15 97.8 97.8 12/09/24 07:15 Nasal Cannula* 2 28 Physical Exam GEN: Age-appropriate male in no acute distress. Alert. HEENT: Normocephalic atraumatic. Moist mucous membranes. Anicteric sclerae. CV: Irregularly irregular Respiratory: CTAB ABD: Slightly obese abdomen without tenderness to palpation. No guarding or rebound. Abdominal ultrasound: Cholelithiasis with gallbladder wall edema with gallbladder wall thickening to 12 mm. Common bile duct is not visualized. Labs/Diagnostic Data Labs Test 12/09/24 11:28 12/09/24 10:20 12/09/24 07:35 12/09/24 04:28 Range/Units White Blood Count 12.1 #H 4.4-10.8 10^3/uL Red Blood Count 5.39 4.5-5.90 10^6/uL Hemoglobin 16.7 13.5-17.5 g/dL Hematocrit 52.0 # 41.0-53.0 % Mean Corpuscular Volume 96.5 80.0-100.0 fL Mean Corpuscular Hemoglobin 30.9 28.0-32.0 pg Mean Corpuscular Hemoglobin Concent 32.0 32.0-36.0 g/dL Red Cell Distribution Width 14.6 H 11.8-14.3 % Platelet Count 171 # 140-450 10^3/uL Mean Platelet Volume 8.4 6.9-10.8 fL Neutrophils (%) (Auto) 85.6 H 37.0-80.0 % Lymphocytes (%) (Auto) 5.0 L 10.0-50.0 % Monocytes (%) (Auto) 8.8 0.0-12.0 % Eosinophils (%) (Auto) 0.1 0.0-7.0 % Basophils (%) (Auto) 0.5 0.0-2.0 % Neutrophils # (Auto) 10.4 H 1.6-8.6 10 ^3/uL Lymphocytes # (Auto) 0.6 0.4-5.4 10 ^3/uL Monocytes # (Auto) 1.1 0-1.3 10 ^3/uL Eosinophils # (Auto) 0 0-0.8 10 ^3/uL Basophils # (Auto) 0.1 0-0.2 10 ^3/uL Nucleated Red Blood Cells 0.1 % Sodium Level 137 136-145 mmol/L Potassium Level 7.0 #*H 3.5-5.1 mmol/L Chloride Level 102 98-107 mmol/L Carbon Dioxide Level 16 L 20-31 mmol/L Anion Gap 19 H 5-15 Blood Urea Nitrogen 16 9-23 mg/dL Creatinine 1.95 H 0.700-1.30 mg/dL Glomerular Filtration Rate Calc 41 >90 mL/min BUN/Creatinine Ratio 8.2 L 10.0-20.0 Serum Glucose 89 74-106 mg/dL Calcium Level 9.1 8.7-10.4 mg/dL Total Bilirubin 3.1 H 0.2-1.0 mg/dL Aspartate Amino Transferase (AST) 1158 H 13-40 U/L Alanine Aminotransferase (ALT) 511 H 7-40 U/L Alkaline Phosphatase 143 H 46-116 U/L Total Protein 6.9 5.7-8.2 g/dL Albumin 4.2 3.2-4.8 g/dL Blood Gas Specimen Type Arterial Blood Gas Sample Site Right radial Blood Gas Patient Temperature 37.0 Arterial Blood Date Drawn [id number] Arterial Blood pH 7.281 L 7.350-7.450 Arterial Blood Partial Pressure CO2 18.2 *L 35.0-48.0 mmHg Arterial Blood Partial Pressure O2 138.9 H 83.0-108.0 mmHg Arterial Blood HCO3 8.4 L 21.0-28.0 mmol/L Arterial Blood Oxygen Saturation 98.2 H 94.0-98.0 % Arterial Blood Base Excess -15.3 L -2.0-3.0 mmol/L Arterial Blood Oxyhemoglobin 97.6 94.0-98.0 % Arterial Blood Carboxyhemoglobin 0.1 L 0.5-1.5 % Arterial Blood Methemoglobin 0.5 0.0-1.5 % Todd Test Yes Blood Gas Total Hemoglobin 17.90 H 13.5-17.5 g/dL Blood Gas Liter Flow 3.00 Blood Gas Modality Nasal cannula FiO2 % 32.0 Blood Gas Critical Value Read Back yes Blood Gas Notified Whom facility maintenance mechanic raymond Blood Gas Notified Time [id number] Blood Gas Notified By sample display preparer merlin Urine Color Dark-yellow Yellow Urine Clarity Clear Clear Urine pH 5.5 5.0-9.0 Urine Specific Drasco 1.025 1.001-1.035 Urine Protein 2+ H Negative Urine Ketones Negative Negative Urine Blood Negative Negative /uL Urine Nitrite Negative Negative Urine Bilirubin 1+ Negative Urine Urobilinogen 12 H Negative mg/dL Urine Leukocyte Esterase Negative Negative /uL Urine RBC 1 0 - 3 /hpf Urine Microscopic WBC < 1 0-3 /HPF Urine Squamous Epithelial Cells None seen <5 /hpf Urine Bacteria None seen None Seen /hpf Urine Granular Casts Few 0 /lpf Urine Mucus Few None Seen Urine Yeast (Budding) Occasional None Seen /hpf Urine Glucose Normal Normal mg/dL Urine Opiates Screen Neg NEGATIVE Urine Fentanyl Screen Neg NEGATIVE Urine Barbiturates Screen Neg NEGATIVE Urine Phencyclidine Screen Neg NEGATIVE Urine Amphetamines Screen Pos NEGATIVE Urine Benzodiazepines Screen Neg NEGATIVE Urine Cocaine Screen Neg NEGATIVE Urine Cannabinoids Screen Neg NEGATIVE Troponin I High Sensitivity 62 *H </=54 ng/L Triglycerides Level 113 < 150 mg/dL Cholesterol Level 100 < 200 mg/dL LDL Cholesterol 77 < 100 mg/dL HDL Cholesterol 16 L 40-59 mg/dL Test 12/09/24 02:25 12/09/24 01:33 Range/Units Hemoglobin A1c 6.1 H <5.7 % A1C Amylase Level 55 30-118 U/L Lipase 51 12-53 U/L Prothrombin Time 15.7 H 9.3-11.8 sec Prothrombin Time INR 1.55 H 0.9-1.15 Activated Partial Thromboplast Time 27.6 24.5-34.5 SEC D-Dimer, Quantitative 0.54 H 0.0-0.49 mg/L FEU Magnesium Level 2.1 1.6-2.6 mg/dL B-Type Natriuretic Peptide 909.46 0-100 pg/mL Thyroid Stimulating Hormone (TSH) 1.24 0.55-4.78 uIU/mL Assessment 1. Probable chronic cholecystitis without acute component. 2. New decompensated heart failure 3. New onset of AFib 4. NSTEMI Plan/Recommendation 1. Due to his cardiac issues, patient is relatively high risk for perioperative cardiac event. Especially since he has minimal symptoms at this time, I recommend treating conservatively until his cardiac work is fully completed. Plan discussed with: Patient RENÉE RUTHERFORD MD Dec 09, 2024 12:42
[2024-12-09] MEDS: ONDANSETRON HCL 4 MG/2 ML VIAL IV PRN (13:50)
[2024-12-09 13:59] LABS: Hematocrit 51.7 % (41.0-53.0); Hemoglobin 16.7 g/dL (13.5-17.5); Mean Corpuscular Hemoglobin 30.8 pg (28.0-32.0); Mean Corpuscular Volume 95.4 fL (80.0-100.0); Nucleated Red Blood Cells % 0.1 %
[2024-12-09 14:06] LABS: Chloride 103 mmol/L (98-107); Potassium 5.1 mmol/L (3.5-5.1); Sodium 141 mmol/L (136-145)
[2024-12-09 14:07] LABS: Calcium 9.0 mg/dL (8.7-10.4)
[2024-12-09 14:09] LABS: Carbon Dioxide 19 mmol/L (20-31)
[2024-12-09 14:12] LABS: BUN/Creatinine Ratio 10.9 (10.0-20.0); Blood Urea Nitrogen 20 mg/dL (9-23); Glucose 122 mg/dL (74-106)
[2024-12-09 14:14] LABS: Anion Gap 19 (5-15)
[2024-12-09] MEDS: DEXTROSE (50%) 50ML SYRG IV ONE (14:25)
[2024-12-09] MEDS: SODIUM ZIRCONIUM CYCL 10 GM PAK PO ONE (14:26)
[2024-12-09] MEDS: InsuLIN REG 1unit/0.01ml Soln (100units/ml) IV ONE (14:26)
[2024-12-09] MEDS: SODIUM BICARB 8.4% 50Meq/50ml SYR INJ IV ONE (14:26)
[2024-12-09 14:27] LABS: Albumin 4.1 g/dL (3.2-4.8); Total Protein 7.1 g/dL (5.7-8.2)
[2024-12-09 14:29] LABS: Alkaline Phosphatase 143.0 U/L (46-116); Bilirubin, Direct 2.0 mg/dL (<0.3); Bilirubin, Total 3.2 mg/dL (0.2-1.0)
[2024-12-09 14:42] LABS: Alanine Aminotransferase 1246.0 U/L (7-40)
[2024-12-09 14:54] LABS: Hepatitis B Surface Antigen Negative (Negative); Hepatitis C Antibody Negative (Negative)
[2024-12-09] MEDS: METOPROLOL TARTRATE 1MG/1ML-5ML VIAL IV ONE (17:02)
[2024-12-09] MEDS: FUROSEMIDE 40 MG/4 ML VIAL IV SCH (18:05)
--- NOTE | 2024-12-09 18:32 | DVHSR ---
APPROVED REPORT EXAM: Two-dimensional and M-mode echocardiogram with Doppler and color Doppler. Blood Pressure: 109/85 mmHg INDICATION AFIB, HF RISK FACTORS Height: 71, Weight: 252 DIMENSIONS LVDd5.4 (3.8-5.7cm)LA (2D) (1.9-4.0cm)Aortic Root3.2 (2.0-3.7cm) LVDs5.2 (2.5-4.0cm)LA (MM) (1.9-4.0cm)Aortic Cusp Exc1.3 (1.5-2.0cm) EF (%) 10.0 (55-70%)Rt. Atrium5.3 (1.9-4.0cm)Asc. Aorta cm Mitral Valve MitralMitral Stenosis E wave2.76m/sMV Mean GR.mmHg A wavem/sMV Peak GR.78mmHg E/A ratio0.02D MVAcm2 DECEL TimemsPRESS 1/2 Ncwd20wh IVRTmsDop MVA5.07cm2 Aortic Valve Aortic ValveAortic Stenosis V10.60m/Jason Mean GR.6mmHg V21.48m/Jason Peak GR.9mmHg LVOT Diameter2.2 (1.8-2.4cm)Doppler AVA1.54cm2 AI P 1/2 Aqtz238.35ms Tricuspid Valve TR Velocity2.50m/s [id number] Other Information Technically limited study due to patient breathing and high heart rate. Conclusion Technically good study. Sinus rhythm. Left ventricular and left atrial enlargement. Large right ventricle. Valves appear to be structurally normal. Mild aortic sclerosis without stenosis. Possible TAVR valv e in place. Left ventricular systolic performance is markedly diminished. EF is approximately 10-15% at best wit h severe global hypokinesis. Diminished RV function. Septal doming indicative of pulmonary hyperten brandon. Mild MR. Moderate RVSP 45-50 mmHg TR, mild/moderate aortic insufficiency. No pericardial effusion masses or vegetations discernible.
--- NOTE | 2024-12-09 19:09 | ECG ---
[facility] Test Date: 2024-12-09 Test Time: 12:26:54 Pat Name: SANDY EVANS Department: Room: 0240T Gender: M Enrichment Director: : 1975 Requested By: MARY CHAPMAN Order Number: [id number] Reading MD: Greg Lutz Measurements Intervals Nickerson Rate: 124 P: 0 WA: 0 QRS: 88 QRSD: 108 T: 101 QT: 393 QTc: 565 Interpretive Statements Atrial fibrillation Probable anteroseptal infarct, old Prolonged QT interval Electronically Signed On 12-12-2024 15:03:53 PDT by Greg Lutz Please click the below link to view image of tracing.
[2024-12-09 19:45] VITALS: PULSE 124; RESP 20; O2SAT 97
[2024-12-09] MEDS: DIGOXIN (250MCG/ML) 2 ML AMPULE IV ONE (21:21)
[2024-12-09] MEDS: METOPROLOL TARTRATE 25 MG TAB PO SCH (22:05)
[2024-12-10] VITALS (8 sets, daily range): BP systolic 115–143; BP diastolic 70–102; PULSE 76–123; RESP 17–22; TEMP 97.4–98.7; O2SAT 96–98
[2024-12-10] MEDS: DIGOXIN (250MCG/ML) 2 ML AMPULE IV ONE ×2 (01:13→10:45)
[2024-12-10] MEDS: METOPROLOL TARTRATE 25 MG TAB PO ONE (03:22)
--- NOTE | 2024-12-10 04:24 | DVH ---
CLINICAL INDICATION: remote right eye trauma, rule out presence of foreign body TECHNIQUE: XY ORBITS SINGLE VIEW Comparison: None FINDINGS/IMPRESSION: : There is no evidence of acute fracture or dislocation. No evidence of radiodense foreign body. Sinuses are clear.
[2024-12-10 06:38] LABS: Hematocrit 45.8 % (41.0-53.0); Hemoglobin 15.2 g/dL (13.5-17.5); Mean Corpuscular Hemoglobin 30.9 pg (28.0-32.0); Mean Corpuscular Volume 93.1 fL (80.0-100.0); Nucleated Red Blood Cells % 0.2 %
[2024-12-10 06:55] LABS: Albumin 3.8 g/dL (3.2-4.8); Anion Gap 14 (5-15); BUN/Creatinine Ratio 16.8 (10.0-20.0); Calcium 8.7 mg/dL (8.7-10.4); Chloride 104 mmol/L (98-107); Glucose 106 mg/dL (74-106); Magnesium 2.3 mg/dL (1.6-2.6); Potassium 4.3 mmol/L (3.5-5.1); Sodium 138 mmol/L (136-145); Total Protein 6.5 g/dL (5.7-8.2)
[2024-12-10 07:07] LABS: Alkaline Phosphatase 136 U/L (46-116); Bilirubin, Total 2.7 mg/dL (0.2-1.0); Blood Urea Nitrogen 31 mg/dL (9-23); Carbon Dioxide 20 mmol/L (20-31)
--- NOTE | 2024-12-10 08:57 | DVHPN2 ---
Consult Progress Note Date Seen: Dec 10, 2024 Subjective Review of Systems: CVS:Normal, RESPIRATORY:Abnormal, NEURO:Normal Other Systems: C/o mild SOB, improving Objective vital signs Vital Sign Date Time Temp Pulse Resp B/P (MAP) Pulse Ox O2 Delivery O2 Flow Rate FiO2 12/10/24 07:59 98.7 104 22 116/92 (100) 97 98.7 12/09/24 19:45 Room Air* 0 21 Total Intake and Output 12/09/24 12/09/24 12/10/24 15:00 23:00 07:00 Intake Total 216.66 ml 10 ml Output Total 1200 ml 650 ml Balance 216.66 ml -1200 ml -640 ml medications Current Medications Medications Dose Ordered Sig/Fabian Route Start Time Stop Time Status Last Admin Dose Admin Ondansetron HCl 4 mg Q4HP PRN IV 12/09/24 04:30 12/09/24 13:50 4 MG Furosemide 40 mg BIDD IV 12/09/24 18:00 12/10/24 06:31 40 MG Enoxaparin Sodium 110 mg Q12HR SC 12/09/24 10:00 12/09/24 22:06 110 MG Ketorolac Tromethamine 15 mg Q6HPRN PRN IV 12/09/24 11:45 12/14/24 11:44 Morphine Sulfate 1 mg Q6HP PRN IV 12/09/24 11:45 12/09/24 13:51 1 MG Metoprolol Tartrate 50 mg BID PO 12/10/24 10:00 Pantoprazole Sodium 40 mg DAILY IV 12/10/24 10:00 Examination: LUNGS:Abnormal (Diminished bilaterally), CVS:Abnormal (A-fib, uncontrolled rate), NEURO:Normal laboratory and microbiology Laboratory Tests 12/10/24 05:40 Test 12/10/24 05:40 Range/Units Serum Glucose 106 74-106 mg/dL Problem List/Assessment/Plan Problem List/Assessment/Plan De Horacio decompensated heart failure, NYHA Class III Atrial fibrillation with rapid ventricular rate, Stage III, newly diagnosed NSTEMI likely type II secondary to above Pulmonary hypertension, moderate degree Rule out acute cholecystitis Elevated LFTs Methamphetamine abuse Obesity Plan/Recommendation (Dr. Lutz) Transthoracic echocardiogram revealed LVEF 10-15% with severe global hypokinesis and diminished RV function. Discontinue antiarrhythmic therapy (contraindicated) and continue rate control with metoprolol and digoxin including loading dose. Therapeutic Lovenox and transition to DOAC therapy when appropriate ([id number] Score 2 points, HAS BLED Score 1 point). Continue preload and afterload reduction, strict I&Os, daily weight, and fluid restriction. Replete electrolytes as necessary, K>4 and Mg>2. Further orders per clinical course. Thank you for allowing us to participate in this patient's care. Please call if you have any questions or concerns. This medical document was created using an electronic medical record system with voice recognition software and computerized dictation system. Although this document has been carefully reviewed, there might still be some phonetic and typographical errors. Occasional wrong-word or ``sound-alike substitutions may have occurred due to the inherent limitations of voice recognition software. These areas are purely typographical due to imperfections of the software programs and do not reflect any compromise in the patient's medical care. Please read the chart carefully and recognize, using context, where these substitutions have occurred. Plan discussed with: Patient, Other Date of Service: Dec 10, 2024 Billing Provider: DWAYNE TATUM Cardiology Common Codes: [id number] HOSP CARE(High DWAYNE TATUM Dec 10, 2024 08:57
--- NOTE | 2024-12-10 10:17 | DVHPN2 ---
Progress Note - Dictate Date Seen: Dec 10, 2024 Medical Necessity Reason Pt with a Central, PICC or Fol: No Subjective E: no major events o/n. no complaints of abd pain. vital signs Vital Sign Date Time Temp Pulse Resp B/P (MAP) Pulse Ox O2 Delivery O2 Flow Rate FiO2 12/10/24 08:00 112 12/10/24 07:59 98.7 22 116/92 (100) 97 98.7 12/10/24 07:30 Simple Mask* 8 60 Total Intake and Output 12/09/24 12/09/24 12/10/24 15:00 23:00 07:00 Intake Total 216.66 ml 10 ml Output Total 1200 ml 650 ml Balance 216.66 ml -1200 ml -640 ml medications Current Medications Medications Dose Ordered Sig/Fabian Route Start Time Stop Time Status Last Admin Dose Admin Ondansetron HCl 4 mg Q4HP PRN IV 12/09/24 04:30 12/09/24 13:50 4 MG Furosemide 40 mg BIDD IV 12/09/24 18:00 12/10/24 06:31 40 MG Enoxaparin Sodium 110 mg Q12HR SC 12/09/24 10:00 12/09/24 22:06 110 MG Ketorolac Tromethamine 15 mg Q6HPRN PRN IV 12/09/24 11:45 12/14/24 11:44 Morphine Sulfate 1 mg Q6HP PRN IV 12/09/24 11:45 12/09/24 13:51 1 MG Metoprolol Tartrate 50 mg BID PO 12/10/24 10:00 Pantoprazole Sodium 40 mg DAILY IV 12/10/24 10:00 Digoxin 0.125 mg EOD PO 12/12/24 10:00 objective GEN: NAD. alert. ABD: soft. NT/ND. laboratory and microbiology Laboratory Tests 12/10/24 05:40 Test 12/10/24 05:40 Range/Units Serum Glucose 106 74-106 mg/dL Assessment/Plan A: 1. Probable chronic cholecystitis without acute component. 2. New decompensated heart failure 3. New onset of AFib 4. NSTEMI P: 1. pt is a high risk surgical patient. will get MRCP and HIDA. if HIDA is positive for cystic duct obstruction, recommend IR consult for percutaneous cholecystostomy. Plan discussed with: Patient RENÉE RUTHERFORD MD Dec 10, 2024 10:17
[2024-12-10] MEDS: METOPROLOL TARTRATE 25 MG TAB PO SCH (10:44)
[2024-12-10] MEDS: PANTOPRAZOLE 40 MG/10 ML VIAL INJ IV SCH (10:45)
--- NOTE | 2024-12-10 13:13 | DVHPNRES ---
Progress Note Date Seen: Dec 10, 2024 Resident Creating Document: JESSICA SIEGEL RESIDENT Medical Necessity Reason Pt with a Central, PICC or Fol: No Subjective Review of Systems Jordan Burrell is a 49-year-old male patient who presents to the ED for evaluation of progressive dyspnea from Functional Class I to functional class four three weeks prior to his admission, associated with palpitations and bilateral leg swelling. Denies chest pain, syncope, nausea, vomiting or other associated symptoms. Past Medical History: Diverticulitis complicated with perforation status postop Past Surgical History: 2004 Laparotomy with intestinal resection ([place]) . Family History: Mother history of bone cancer, parents- CAD Social history: Lives in [place] with family (next of kin ). Current methamphetamine abuse. Denies current tobacco, alcohol and other drug abuse Allergies: Denies Home medication: Denies PCP: Denies Patient seen and examined at bedside. Continues with mild dyspnea in Functional Class III-four, continue his oxygen requirement through nasal cannula at 2 L/min. Persist with rapid ventricular response atrial fibrillation. Objective vital signs Vital Sign Date Time Temp Pulse Resp B/P (MAP) Pulse Ox O2 Delivery O2 Flow Rate FiO2 12/10/24 12:56 79 115/85 12/10/24 07:59 98.7 22 97 98.7 12/10/24 07:30 Simple Mask* 8 60 Total Intake and Output 12/09/24 12/09/24 12/10/24 15:00 23:00 07:00 Intake Total 216.66 ml 10 ml Output Total 1200 ml 650 ml Balance 216.66 ml -1200 ml -640 ml medications Current Medications Medications Dose Ordered Sig/Fabian Route Start Time Stop Time Status Last Admin Dose Admin Ondansetron HCl 4 mg Q4HP PRN IV 12/09/24 04:30 12/09/24 13:50 4 MG Enoxaparin Sodium 110 mg Q12HR SC 12/09/24 10:00 12/10/24 10:43 110 MG Ketorolac Tromethamine 15 mg Q6HPRN PRN IV 12/09/24 11:45 12/14/24 11:44 Morphine Sulfate 1 mg Q6HP PRN IV 12/09/24 11:45 12/09/24 13:51 1 MG Metoprolol Tartrate 50 mg BID PO 12/10/24 10:00 12/10/24 10:44 50 MG Pantoprazole Sodium 40 mg DAILY IV 12/10/24 10:00 12/10/24 10:45 40 MG Digoxin 0.125 mg EOD PO 12/12/24 10:00 Furosemide 20 mg BIDD IV 12/10/24 18:00 Examination Gen: 49-year-old male in mild distress, Wallace catheter placed and clear urine noted Skin: Warm, dry, normal color and texture, no rash. HEENT: Normocephalic atraumatic, mucous membranes moist and pink. Neck: Cervical and supraclavicular nodes normal without enlargement, trachea is midline, thyroid gland is normal without masses. Pulmonary: Clear to auscultation and percussion bilaterally. Cardiac: Irregularly irregular rhythm with tachycardia Skin: Left lower quadrant abdominal scars Abdomen: Soft, nontender, nondistended, bowel sounds present all 4 quadrants, no guarding, no rigidity, no organomegaly. Extremities: No cyanosis, clubbing, no edema Neuro: Cranial nerves II through XII grossly intact, normal affect and speech, no focal motor deficits. 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 Completed echocardiogram: Severe global hypokinesia with LVEF of 10-15%, diminished RV function and pulmonary hypertension Cardiology consulted: Recommended rate control at this time with metoprolol and digoxin (rhythm control not indicated due to onset of symptoms greater than 48 hours), GDMT, On enoxaparin 110 mg SC q.12 hours Currently on furosemide 40 mg IV b.i.d. Evidence on telemetry nonsustained monomorphic ventricular tachycardia, improved after beta-gail treatment. Continue telemetry. Sepsis secondary to questionable cholecystitis Transaminitis probably secondary to hepatic congestion Hepatic steatosis Initial level ultrasound showed cholelithiasis with wall edema and thickening concerning of cholecystitis. Consulted surgical training specialist who recommended HIDA scan which ruled out cholecystitis. No surgical intervention recommended at this time. Transaminitis improved after IV diuretic treatment. Acute viral hepatitis panel was negative Currently on empiric IV antibiotics (ceftriaxone and metronidazole) Acute kidney injury hemodynamically mediated (VMN) - improved Hyperkalemia - Resolved Continue IV diuretics Completed hyperkalemia protocol Methamphetamine abuse UDS positive for methamphetamine Counseled strongly against methamphetamine abuse for over 16 minutes. Prediabetic (hemoglobin A1c 6.1%) Obesity Gave advice on healthy lifestyle habits On insulin sliding scale History of diverticulitis - s/p colectomy Monitor Goals of care discussed with patient for over 18 minutes: Full code status Discussed plan with Dr. Paiz, patient and nurses: Patient on telemetry, continue IV diuretics and optimize medical therapy with GDM T and rate control. Indicated empiric IV antibiotics for questionable cholecystitis, evaluated by surgical training specialist who indicates monitoring condition and no surgical intervention at the time. Patient has poor prognosis. Plan discussed with: Patient, Other (Nurse, girlfriend) Date of Service: Dec 10, 2024 Billing Provider: JOEY PAIZ MD Common Visit Codes: [id number] INP/OBS CARE(HIGH) JESSICA SIEGEL RESIDENT Dec 10, 2024 13:13 [facility] RESIDENT Dec 12, 2024 20:37 JOEY PAIZ MD Dec 13, 2024 22:26
[2024-12-10] MEDS: FUROSEMIDE 20 MG/2 ML VIAL IV SCH (18:24)
--- NOTE | 2024-12-10 19:56 | DVH ---
Procedure: NM NM HIDA SCAN Exam Date: 12/10/2024 03:15 PM Clinical History: poss cholecystitis Comparison Study: US LIVER on DOS: 12/09/24 Nuclear Medicine Hepatobiliary Scan. Technique: Following the intravenous administration of 5.5 mCi of technetium 99m labeled Choletec multiple plana r abdominal planar images were obtained in anterior projection in 1 minute intervals for30 minutes . Right lateral images were obtained at 60 minutes after injection. Findings: The liver appears grossly normal in size. There is no abnormal persistence of the cardiac or blood po ol activity. There is prompt visualization of the gallbladder and excretion of activity into the smal l bowel. Impression: 1. Unremarkable hepatobiliary study without evidence of acute cholecystitis.
[2024-12-11] VITALS (8 sets, daily range): BP systolic 112–126; BP diastolic 79–97; PULSE 52–118; RESP 17–20; TEMP 97.1–98.3; O2SAT 95–100
--- NOTE | 2024-12-11 06:00 | DVH ---
CHEST RADIOGRAPH Indication: CHF Technique: Single frontal view of the chest was obtained COMPARISON: XY CHEST PORTABLE on DOS: 12/09/24 FINDINGS: Lines and Tubes: None Lungs: Congestion Pleura: No effusion. No pneumothorax. Cardiomediastinal contours: Cardiomegaly Bones: Unremarkable IMPRESSION: Unchanged mild pulmonary vascular congestion
[2024-12-11 06:24] LABS: Hematocrit 46.0 % (41.0-53.0); Hemoglobin 15.4 g/dL (13.5-17.5); Mean Corpuscular Hemoglobin 30.8 pg (28.0-32.0); Mean Corpuscular Volume 91.8 fL (80.0-100.0); Nucleated Red Blood Cells % 0.1 %
[2024-12-11 06:38] LABS: Albumin 3.6 g/dL (3.2-4.8); Anion Gap 9 (5-15); Carbon Dioxide 27 mmol/L (20-31); Chloride 101 mmol/L (98-107); Potassium 3.7 mmol/L (3.5-5.1); Sodium 137 mmol/L (136-145); Total Protein 6.3 g/dL (5.7-8.2)
[2024-12-11 07:12] LABS: Alanine Aminotransferase 885 U/L (7-40); Alkaline Phosphatase 141 U/L (46-116); Bilirubin, Total 1.9 mg/dL (0.2-1.0); Calcium 8.2 mg/dL (8.7-10.4); Glucose 112 mg/dL (74-106)
[2024-12-11 08:25] LABS: BUN/Creatinine Ratio 23.5 (10.0-20.0); Blood Urea Nitrogen 27 mg/dL (9-23)
--- NOTE | 2024-12-11 10:45 | DVHPN2 ---
Consult Progress Note Date Seen: Dec 11, 2024 Subjective Review of Systems: CVS:Normal, RESPIRATORY:Normal, NEURO:Normal Other Systems: Denies any cardiac symptoms. Notified of NSVT x 3 sec Objective vital signs Vital Sign Date Time Temp Pulse Resp B/P (MAP) Pulse Ox O2 Delivery O2 Flow Rate FiO2 12/11/24 09:33 76 126/97 12/11/24 08:49 97.6 18 96 97.6 12/10/24 20:00 Nasal Cannula* 2 28 Total Intake and Output 12/10/24 12/10/24 12/11/24 15:00 23:00 07:00 Intake Total 600 ml Output Total 2000 ml 1140 ml 3000 ml Balance -2000 ml -1140 ml -2400 ml medications Current Medications Medications Dose Ordered Sig/Fabian Route Start Time Stop Time Status Last Admin Dose Admin Ondansetron HCl 4 mg Q4HP PRN IV 12/09/24 04:30 12/09/24 13:50 4 MG Enoxaparin Sodium 110 mg Q12HR SC 12/09/24 10:00 12/11/24 09:33 110 MG Ketorolac Tromethamine 15 mg Q6HPRN PRN IV 12/09/24 11:45 12/14/24 11:44 Morphine Sulfate 1 mg Q6HP PRN IV 12/09/24 11:45 12/10/24 20:18 1 MG Metoprolol Tartrate 50 mg BID PO 12/10/24 10:00 12/11/24 09:33 50 MG Pantoprazole Sodium 40 mg DAILY IV 12/10/24 10:00 12/11/24 09:32 40 MG Digoxin 0.125 mg EOD PO 12/12/24 10:00 Furosemide 20 mg BIDD IV 12/10/24 18:00 12/11/24 06:08 20 MG Ceftriaxone Sodium 50 ml @ 100 mls/hr DAILY@09 IV 12/11/24 09:00 12/11/24 09:32 100 MLS/HR Metronidazole 100 ml @ 100 mls/hr Q8HR IV 12/10/24 22:00 12/11/24 06:07 100 MLS/HR Examination: LUNGS:Normal, CVS:Normal (A-fib controlled rate), MSK:Normal (Pedal edema resolved), NEURO:Normal laboratory and microbiology Laboratory Tests 12/11/24 05:52 Test 12/11/24 05:52 Range/Units Serum Glucose 112 H 74-106 mg/dL Problem List/Assessment/Plan Problem List/Assessment/Plan De Horacio decompensated HFrEF, NYHA Class III Atrial fibrillation with rapid ventricular rate, Stage III, newly diagnosed NSTEMI likely type II secondary to above Pulmonary hypertension, moderate degree Non-sustained ventricular tachycardia x 3 sec Elevated LFTs Acute kidney injury Methamphetamine abuse Obesity Plan/Recommendation (Dr. Lutz) Transthoracic echocardiogram revealed LVEF 10-15% with severe global hypokinesis and diminished RV function. Discontinue antiarrhythmic therapy (contraindicated) and continue rate control with Metoprolol XL QD and digoxin therapy EOD. Transition to DOAC therapy with Eliquis ([id number] Score 2 points, HAS BLED Score 1 point). Replete electrolytes as necessary, K>4 and Mg>2. Initiate full GDMT for HFrEF, monitor renal function and BP closely. If no improvement on LV function with three months of medical therapy for HF, the patient may qualify for an ICD. Follow-up with a primary 911 emergency services dispatcher within 1- 2 weeks post-discharge for further evaluation including outpatient ischemic work-up. Kindly call if in need of further recommendations. Cardiac stable at this time. Signing off. Thank you for allowing us to participate in this patient's care. This medical document was created using an electronic medical record system with voice recognition software and computerized dictation system. Although this document has been carefully reviewed, there might still be some phonetic and typographical errors. Occasional wrong-word or ``sound-alike substitutions may have occurred due to the inherent limitations of voice recognition software. These areas are purely typographical due to imperfections of the software programs and do not reflect any compromise in the patient's medical care. Please read the chart carefully and recognize, using context, where these substitutions have occurred. Plan discussed with: Patient, Other Date of Service: Dec 11, 2024 Billing Provider: DWAYNE TATUM Cardiology Common Codes: [id number] HOSP CARE(High DWAYNE TATUM Dec 11, 2024 10:45
--- NOTE | 2024-12-11 16:14 | DVHPNRES ---
Progress Note Date Seen: Dec 11, 2024 Resident Creating Document: JESSICA SIEGEL RESIDENT Medical Necessity Reason Pt with a Central, PICC or Fol: No The following are medically ne: Mason Catheter Reason for mason catheter: Strict I&O Subjective Review of Systems Jordan Burrell is a 49-year-old male patient who presents to the ED for evaluation of progressive dyspnea from Functional Class I to functional class four three weeks prior to his admission, associated with palpitations and bilateral leg swelling. Denies chest pain, syncope, nausea, vomiting or other associated symptoms. Past Medical History: Diverticulitis complicated with perforation status postop Past Surgical History: 2004 Laparotomy with intestinal resection ([place]) . Family History: Mother history of bone cancer, parents- CAD Social history: Lives in [place] with family (next of kin ). Current methamphetamine abuse. Denies current tobacco, alcohol and other drug abuse Allergies: Denies Home medication: Denies PCP: Denies Patient seen and examined at bedside. Continues with mild dyspnea in Functional Class II r, continue his oxygen requirement through nasal cannula at 1 L/min. Persist with rapid ventricular response atrial fibrillation. Objective vital signs Vital Sign Date Time Temp Pulse Resp B/P (MAP) Pulse Ox O2 Delivery O2 Flow Rate FiO2 12/11/24 12:36 97.1 52 17 123/79 (94) 97 97.1 12/11/24 08:00 Nasal Cannula* 2 28 Total Intake and Output 12/10/24 12/10/24 12/11/24 15:00 23:00 07:00 Intake Total 600 ml Output Total 2000 ml 1140 ml 3000 ml Balance -2000 ml -1140 ml -2400 ml medications Current Medications Medications Dose Ordered Sig/Fabian Route Start Time Stop Time Status Last Admin Dose Admin Ondansetron HCl 4 mg Q4HP PRN IV 12/09/24 04:30 12/09/24 13:50 4 MG Ketorolac Tromethamine 15 mg Q6HPRN PRN IV 12/09/24 11:45 12/14/24 11:44 Morphine Sulfate 1 mg Q6HP PRN IV 12/09/24 11:45 12/10/24 20:18 1 MG Metoprolol Tartrate 50 mg BID PO 12/10/24 10:00 12/11/24 23:59 12/11/24 09:33 50 MG Pantoprazole Sodium 40 mg DAILY IV 12/10/24 10:00 12/11/24 09:32 40 MG Digoxin 0.125 mg EOD PO 12/12/24 10:00 Ceftriaxone Sodium 50 ml @ 100 mls/hr DAILY@09 IV 12/11/24 09:00 12/11/24 09:32 100 MLS/HR Metronidazole 100 ml @ 100 mls/hr Q8HR IV 12/10/24 22:00 12/11/24 14:23 100 MLS/HR Apixaban 5 mg BID PO 12/11/24 22:00 Furosemide 40 mg DAILY PO 12/12/24 10:00 Metoprolol Succinate 50 mg DAILY PO 12/12/24 10:00 Empaglifozin 10 mg DAILY PO 12/12/24 10:00 Valsartan 80 mg DAILY PO 12/12/24 10:00 Spironolactone 12.5 mg DAILY PO 12/12/24 10:00 Examination Gen: 49-year-old male in mild distress Skin: Warm, dry, normal color and texture, no rash. HEENT: Normocephalic atraumatic, mucous membranes moist and pink. Neck: Cervical and supraclavicular nodes normal without enlargement, trachea is midline, thyroid gland is normal without masses. Pulmonary: Clear to auscultation and percussion bilaterally. Cardiac: Irregularly irregular rhythm with tachycardia Skin: Left lower quadrant abdominal scars Abdomen: Soft, nontender, nondistended, bowel sounds present all 4 quadrants, no guarding, no rigidity, no organomegaly. Extremities: No cyanosis, clubbing, no edema Neuro: Cranial nerves II through XII grossly intact, normal affect and speech, no focal motor deficits. 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 Completed echocardiogram: Severe global hypokinesia with LVEF of 10-15%, diminished RV function and pulmonary hypertension Cardiology consulted: Recommended rate control at this time with metoprolol and digoxin (rhythm control not indicated due to onset of symptoms greater than 48 hours), GDMT. Recommended outpatient follow up to evaluate adherence and eventual coronary angiography if patient persists with systolic dysfunction. Signed off the case. On enoxaparin 110 mg SC q.12 hours Currently on furosemide 20 mg IV b.i.d. Evidence on telemetry nonsustained monomorphic ventricular tachycardia, improved after beta-gail treatment. Continue telemetry. Sepsis secondary to questionable cholecystitis Transaminitis probably secondary to hepatic congestion Hepatic steatosis Initial level ultrasound showed cholelithiasis with wall edema and thickening concerning of cholecystitis. Consulted surgical instrument repair specialist who recommended HIDA scan which ruled out cholecystitis. No surgical intervention recommended at this time. Transaminitis improved after IV diuretic treatment. Acute viral hepatitis panel was negative Currently on empiric IV antibiotics (ceftriaxone and metronidazole) Acute kidney injury hemodynamically mediated (VMN) - improved Hyperkalemia - Resolved Continue IV diuretics Completed hyperkalemia protocol Methamphetamine abuse UDS positive for methamphetamine Counseled strongly against methamphetamine abuse for over 16 minutes. Prediabetic (hemoglobin A1c 6.1%) Obesity Gave advice on healthy lifestyle habits On insulin sliding scale History of diverticulitis - s/p colectomy Monitor Goals of care discussed with patient for over 18 minutes: Full code status Discussed plan with Dr. Paiz, patient and nurses: Patient on telemetry, continue IV diuretics and optimize medical therapy with GDM T and rate control, weaning off of oxygen requirement. Indicated empiric IV antibiotics for questionable cholecystitis, evaluated by surgical instrument repair specialist who indicates monitoring condition and no surgical intervention at the time. Patient has poor prognosis. Plan discussed with: Patient, Other (Nurse) My Orders My Orders Orders - JESSICA SIEGEL RESIDENT Procedure Category Date Status Time Cardiac DIET 12/10/24 Transmitted Diet-2gna,Lofat,Lochol Dinner Communication Order ORDERS 12/11/24 Transmitted 14:15 Cpap Trial For Am ORDERS 12/11/24 Transmitted 14:16 Date of Service: Dec 11, 2024 Billing Provider: JOEY PAIZ MD Common Visit Codes: [id number] INP/OBS CARE(HIGH) JESSICA SIEGEL RESIDENT Dec 11, 2024 16:14 [facility] Dec 12, 2024 20:40 JOEY PAIZ MD Dec 13, 2024 22:37
[2024-12-11] MEDS: APIXABAN 5 MG TAB PO SCH (21:40)
[2024-12-12 01:00] VITALS: BP 113/91; PULSE 60; RESP 19; TEMP 98.2; O2SAT 96
[2024-12-12] MEDS: KETOROLAC TROMETH 30 MG/ML 1ML VIAL IV PRN (03:09)
[2024-12-12 05:00] VITALS: BP 108/86; PULSE 60; RESP 20; TEMP 98.2; O2SAT 95
[2024-12-12 06:27] LABS: Hematocrit 46.5 % (41.0-53.0); Hemoglobin 15.6 g/dL (13.5-17.5); Mean Corpuscular Hemoglobin 30.9 pg (28.0-32.0); Mean Corpuscular Volume 91.9 fL (80.0-100.0); Nucleated Red Blood Cells % 0.1 %
[2024-12-12 06:38] LABS: Anion Gap 10 (5-15); Carbon Dioxide 24 mmol/L (20-31); Chloride 104 mmol/L (98-107); Potassium 3.6 mmol/L (3.5-5.1); Sodium 138 mmol/L (136-145)
[2024-12-12 06:41] LABS: BUN/Creatinine Ratio 18.3 (10.0-20.0); Blood Urea Nitrogen 20 mg/dL (9-23); Total Protein 6.2 g/dL (5.7-8.2)
[2024-12-12 06:42] LABS: Albumin 3.5 g/dL (3.2-4.8)
[2024-12-12 06:45] LABS: Alanine Aminotransferase 595 U/L (7-40); Alkaline Phosphatase 150 U/L (46-116); Bilirubin, Total 1.6 mg/dL (0.2-1.0); Calcium 8.5 mg/dL (8.7-10.4); Glucose 110 mg/dL (74-106)
[2024-12-12 08:00] VITALS: PULSE 103; O2SAT 96
[2024-12-12 09:00] VITALS: BP 143/89; PULSE 56; RESP 20; TEMP 98.6; O2SAT 96
[2024-12-12] MEDS ORDERED: APIX5TAB PO (09:57)
[2024-12-12] MEDS ORDERED: FURO40TA4 PO (09:57)
[2024-12-12] MEDS ORDERED: METO-6 PO (09:57)
[2024-12-12] MEDS ORDERED: VALS1TAB57 PO (09:57)
[2024-12-12] MEDS ORDERED: SPIR25TA PO (09:57)
[2024-12-12] MEDS ORDERED: EMPA1TAB PO (09:57)
[2024-12-12] MEDS: EMPAGLIFLOZIN 10 MG TAB PO SCH (10:24)
[2024-12-12] MEDS: VALSARTAN 80 MG TAB PO SCH (10:25)
[2024-12-12] MEDS: DIGOXIN 0.125 MG TAB PO SCH (10:25)
[2024-12-12] MEDS: METOPROLOL SUCCINATE XL 50 MG TAB PO SCH (10:26)
[2024-12-12] MEDS: FUROSEMIDE 40 MG TAB PO SCH (10:26)
[2024-12-12] MEDS: SPIRONOLACTONE 25 MG TAB PO SCH (10:27)
[2024-12-12 12:29] VITALS: BP 97/63; PULSE 100; RESP 18; TEMP 98.4; O2SAT 99
[2024-12-12] MEDS ORDERED: MAGNESIUM SULFATE 1GM/100ML 100 ML IV ONE (13:00)
[2024-12-12] MEDS: METOPROLOL SUCCINATE XL 50 MG TAB PO ONE (13:57)
--- NOTE | 2024-12-12 17:42 | DVHDSRES ---
Discharge Summary Date of Admission Resident Creating Document: JESSICA SIEGEL RESIDENT Dec 09, 2024 at 04:20 Date of Discharge: Dec 12, 2024 Labs/Diagnostic Data: Laboratory Results Test 12/12/24 05:21 12/11/24 05:52 12/09/24 15:14 12/09/24 13:45 White Blood Count 6.7 10^3/uL (4.4-10.8) Red Blood Count 5.06 10^6/uL (4.5-5.90) Hemoglobin 15.6 g/dL (13.5-17.5) Hematocrit 46.5 % (41.0-53.0) Mean Corpuscular Volume 91.9 fL (80.0-100.0) Mean Corpuscular Hemoglobin 30.9 pg (28.0-32.0) Mean Corpuscular Hemoglobin Concent 33.6 g/dL (32.0-36.0) Red Cell Distribution Width 14.1 % (11.8-14.3) Platelet Count 246 10^3/uL (140-450) Mean Platelet Volume 8.8 fL (6.9-10.8) Neutrophils (%) (Auto) 73.1 % (37.0-80.0) Lymphocytes (%) (Auto) 10.9 % (10.0-50.0) Monocytes (%) (Auto) 14.7 % (0.0-12.0) Eosinophils (%) (Auto) 0.6 % (0.0-7.0) Basophils (%) (Auto) 0.7 % (0.0-2.0) Neutrophils # (Auto) 4.9 10 ^3/uL (1.6-8.6) Lymphocytes # (Auto) 0.7 10 ^3/uL (0.4-5.4) Monocytes # (Auto) 1.0 10 ^3/uL (0-1.3) Eosinophils # (Auto) 0 10 ^3/uL (0-0.8) Basophils # (Auto) 0 10 ^3/uL (0-0.2) Nucleated Red Blood Cells 0.1 % Sodium Level 138 mmol/L (136-145) Potassium Level 3.6 mmol/L (3.5-5.1) Chloride Level 104 mmol/L (98-107) Carbon Dioxide Level 24 mmol/L (20-31) Anion Gap 10 (5-15) Blood Urea Nitrogen 20 mg/dL (9-23) Creatinine 1.09 mg/dL (0.700-1.30) Glomerular Filtration Rate Calc 83 mL/min (>90) BUN/Creatinine Ratio 18.3 (10.0-20.0) Serum Glucose 110 mg/dL (74-106) Calcium Level 8.5 mg/dL (8.7-10.4) Magnesium Level 2.2 mg/dL (1.6-2.6) Total Bilirubin 1.6 mg/dL (0.2-1.0) Aspartate Amino Transferase (AST) 440 U/L (13-40) Alanine Aminotransferase (ALT) 595 U/L (7-40) Alkaline Phosphatase 150 U/L (46-116) Total Protein 6.2 g/dL (5.7-8.2) Albumin 3.5 g/dL (3.2-4.8) Lactic Acid Level 1.2 mmol/L (0.4-2.0) B-Type Natriuretic Peptide 659.11 pg/mL (0-100) Troponin I High Sensitivity 68 ng/L (</=54) Direct Bilirubin 2.0 mg/dL (<0.3) Hepatitis A IgM Antibody Negative Hepatitis B Surface Antigen Negative (Negative) Hepatitis B Core IgM Antibody Negative (Negative) Hepatitis C Antibody Negative (Negative) Test 12/09/24 10:20 12/09/24 07:35 12/09/24 04:28 12/09/24 02:25 Blood Gas Specimen Type Arterial Blood Gas Sample Site Right radial Blood Gas Patient Temperature 37.0 Arterial Blood Date Drawn [id number] Arterial Blood pH 7.281 (7.350-7.450) Arterial Blood Partial Pressure CO2 18.2 mmHg (35.0-48.0) Arterial Blood Partial Pressure O2 138.9 mmHg (83.0-108.0) Arterial Blood HCO3 8.4 mmol/L (21.0-28.0) Arterial Blood Oxygen Saturation 98.2 % (94.0-98.0) Arterial Blood Base Excess -15.3 mmol/L (-2.0-3.0) Arterial Blood Oxyhemoglobin 97.6 % (94.0-98.0) Arterial Blood Carboxyhemoglobin 0.1 % (0.5-1.5) Arterial Blood Methemoglobin 0.5 % (0.0-1.5) Todd Test Yes Blood Gas Total Hemoglobin 17.90 g/dL (13.5-17.5) Blood Gas Liter Flow 3.00 Blood Gas Modality Nasal cannula FiO2 % 32.0 Blood Gas Critical Value Read Back yes Blood Gas Notified Whom talent advisor raymond Blood Gas Notified Time [id number] Blood Gas Notified By risk and insurance manager merlin Urine Color Dark-yellow (Yellow) Urine Clarity Clear (Clear) Urine pH 5.5 (5.0-9.0) Urine Specific [place] 1.025 (1.001-1.035) Urine Protein 2+ (Negative) Urine Ketones Negative (Negative) Urine Blood Negative /uL (Negative) Urine Nitrite Negative (Negative) Urine Bilirubin 1+ (Negative) Urine Urobilinogen 12 mg/dL (Negative) Urine Leukocyte Esterase Negative /uL (Negative) Urine RBC 1 /hpf (0 - 3) Urine Microscopic WBC < 1 /HPF (0-3) Urine Squamous Epithelial Cells None seen /hpf (<5) Urine Bacteria None seen /hpf (None Seen) Urine Granular Casts Few /lpf (0) Urine Mucus Few (None Seen) Urine Yeast (Budding) Occasional /hpf (None Urine Glucose Normal mg/dL (Normal) Urine Opiates Screen Neg (NEGATIVE) Urine Fentanyl Screen Neg (NEGATIVE) Urine Barbiturates Screen Neg (NEGATIVE) Urine Phencyclidine Screen Neg (NEGATIVE) Urine Amphetamines Screen Pos (NEGATIVE) Urine Benzodiazepines Screen Neg (NEGATIVE) Urine Cocaine Screen Neg (NEGATIVE) Urine Cannabinoids Screen Neg (NEGATIVE) Triglycerides Level 113 mg/dL (< 150) Cholesterol Level 100 mg/dL (< 200) LDL Cholesterol 77 mg/dL (< 100) HDL Cholesterol 16 mg/dL (40-59) Hemoglobin A1c 6.1 % A1C (<5.7) Amylase Level 55 U/L (30-118) Lipase 51 U/L (12-53) Test 12/09/24 01:33 Prothrombin Time 15.7 sec (9.3-11.8) Prothrombin Time INR 1.55 (0.9-1.15) Activated Partial Thromboplast Time 27.6 SEC (24.5-34.5) D-Dimer, Quantitative 0.54 mg/L FEU (0.0-0.49) Thyroid Stimulating Hormone (TSH) 1.24 uIU/mL (0.55-4.78) Free Thyroxine (T4) Calculated 1.23 ng/dL (0.89-1.76) Other Laboratory Tests 12/12/24 05:21 Brief Hx & Hospital Course: Jordan Burrell is a 49-year-old male patient who presents to the ED for evaluation of progressive dyspnea from Functional Class I to functional class four three weeks prior to his admission, associated with palpitations and bilateral leg swelling. Denies chest pain, syncope, nausea, vomiting or other associated symptoms. Past Medical History: Diverticulitis complicated with perforation status postop Past Surgical History: 2005 Laparotomy with intestinal resection ([facility]) . Family History: Mother history of bone cancer, parents- CAD Social history: Lives in [place] with family (next of kin ). Current methamphetamine abuse. 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 Completed echocardiogram which showed LVEF 10-15%, severe global hypokinesis and diminished RV function. search engine marketing specialist evaluated patient, recommended rate control at this time, optimized medical therapy (GDMT, IV diuretics until dry weight and anticoagulation initially with enoxaparin later with DOACs) and suggested follow up as outpatient to evaluate adherence and eventual coronary angiography if systolic dysfunction persist after optimal medical therapy. military technology specialist evaluated the patient due to probable cholecystitis viewed on liver ultrasound, indicated HIDA scan which ruled out cholecystitis, recommending observation and no surgical management at the time of evaluation. Transaminitis interpreted secondary to hepatic congestion due to heart failure. Patient continues unstable, with persistent rapid ventricular response atrial fibrillation (above 150 beats per minute), pending titration of negative chronotropic medication. Patient demonstrated having capacity, oriented, in condition to make his own health decisions, decides to leave against medical advice before stabilizing clinical condition. Patient demonstrates understanding of all risks including worsening risk including further decompensation of his heart failure, ventricular arrhythmia and even , which were explained in layman's terms, as indicated by ability to perform- teach back, ample time given for questions and concerns which were answered /addressed. Patient was counseled extensively and was encouraged to return to ER if any alarming symptoms presents. 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 Paiz, patient and nurses Operations or Procedures ORDERING PHYSICIAN: GABBIE DANIEL MD PROCEDURE(s): CXRP - CHEST PORTABLE REASON: sob ORDER NUMBER(s): [id number], ACCESSION NUMBER(s): [id number] CHEST RADIOGRAPH Indication: sob Technique: Single frontal view of the chest was obtained COMPARISON: None FINDINGS: Lines and Tubes: None Lungs: Mild diffuse increased prominence of the pulmonary vasculature. No evidence of focal consolidation. Pleura: No effusion. No pneumothorax. Cardiomediastinal contours: Cardiomegaly. Bones: Unremarkable IMPRESSION: 1. Cardiomegaly and mild diffuse increased prominence of the pulmonary vasculature. ATED BY: SHAHEED MINER MD ORDERING PHYSICIAN: LONG MORRIS PROCEDURE(s): LIVUS - LIVER REASON: Transaminitis ORDER NUMBER(s): [id number], ACCESSION NUMBER(s): [id number] Technique: Real-time ultrasound imaging of the abdomen was performed with grayscale and color Doppler. Indication: Transaminitis Comparison: None Findings: Liver measures 23 cm. It is increased in echogenicity and echotexture without focal mass. Portal vein is normal in caliber and demonstrates normal hepatopetal flow. Gallbladder demonstrates cholelithiasis. Gallbladder wall edema. Gallbladder wall thickening to 12 mm. The common bile duct is nonvisualized. The right kidney measures 10.3 cm. There is no hydronephrosis or sonographic evidence of nephrolithiasis. The visualized portion of the pancreas is unremarkable The visualized portion of the IVC is unremarkable. Impression: Cholelithiasis with gallbladder wall edema and thickening, concerning for cholecystitis. Recommend HIDA scan, surgical consultation. Echogenic liver which can be seen with hepatic steatosis, cirrhosis. ATED BY: ALIYAH ANDERSON MD DICTATED DATE/TIME: 12/09/24800 ORDERING PHYSICIAN: RENÉE RUTHERFORD MD PROCEDURE(s): GBNM - NM HIDA SCAN REASON: poss cholecystitis ORDER NUMBER(s): [id number], ACCESSION NUMBER(s): [id number] Procedure: NM NM HIDA SCAN Exam Date: 12/10/2024 03:15 PM Clinical History: poss cholecystitis Comparison Study: US LIVER on DOS: 12/09/24 Nuclear Medicine Hepatobiliary Scan. Technique: Following the intravenous administration of 5.5 mCi of technetium 99m labeled Choletec multiple planar abdominal planar images were obtained in anterior projection in 1 minute intervals for30 minutes . Right lateral images were obtained at 60 minutes after injection. Findings: The liver appears grossly normal in size. There is no abnormal persistence of the cardiac or blood pool activity. There is prompt visualization of the gallbladder and excretion of activity into the small bowel. Impression: 1. Unremarkable hepatobiliary study without evidence of acute cholecystitis. ATED BY: KRISTINA AVILA Jr., DO DICTATED DATE/TIME: 12/10/241952 ORDERING PHYSICIAN: MICHELLE CAMPO PROCEDURE(s): ORBIT - ORBITS 4+ VIEW REASON: remote right eye trauma, rule out presence of foreign body ORDER NUMBER(s): [id number], ACCESSION NUMBER(s): [id number] CLINICAL INDICATION: remote right eye trauma, rule out presence of foreign body TECHNIQUE: XY ORBITS SINGLE VIEW Comparison: None FINDINGS/IMPRESSION: : There is no evidence of acute fracture or dislocation. No evidence of radiodense foreign body. Sinuses are clear. 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 Follow-up with cardiology 1 week. Follow-up with surgery within 2 weeks. Scheduled Apixaban Base (Eliquis), 5 MG PO BID Digoxin (Digox), 125 MCG PO DAILY Empagliflozin (Jardiance), 10 MG PO DAILY Furosemide (Furosemide), 40 MG PO DAILY Metoprolol Succinate (Toprol Xl), 50 MG PO DAILY Spironolactone (Aldactone), 12.5 MG PO DAILY Valsartan (Valsartan), 80 MG PO DAILY Discharge Statement: "Patient was advised to return to the ER or call 911 if any headaches, dizziness, shortness of breath, chest pain, abdominal pain, bleeding, fevers, or worsening of medical condition. Patient was counseled about treatment plan, medications, possible side effects, patientverbalized understanding. All questions were answered to the best of my ability. This discharge took greater then 30 minutes in planning, reviewing documentation, counseling the patient, and discussing with other team members." ASSESSMENT ASSESSMENT Assessment JESSICA SIEGEL RESIDENT Dec 12, 2024 17:42 [facility] RESIDENT Dec 12, 2024 20:18
[2024-12-12] MEDS ORDERED: DIGO125T11 PO (19:13)
[2024-12-14] MEDS ORDERED: DIGOXIN 0.125 MG TAB PO SCH (10:00)
== END 2024-12-12 16:00 | disposition left against medical advice (07) | DRG 720 ==
LOC: ER 01:12 → EDBD 01:12 → OVERFLOW 04:20 → TELE-EAST 12-10 14:03
PROVIDERS: ADMIT Student in an Organized Health Care Education/Training Program; ATTEND Emergency Medicine
DX: A41.9 Sepsis, unspecified organism (principal); N17.0 Acute kidney failure with tubular necrosis; J96.00 Acute respiratory failure, unspecified whether with hypoxia or hypercapnia; I50.23 Acute on chronic systolic (congestive) heart failure; I21.A1 Myocardial infarction type 2; I48.19 Other persistent atrial fibrillation; I27.20 Pulmonary hypertension, unspecified; I47.29 Other ventricular tachycardia; I42.7 Cardiomyopathy due to drug and external agent; K76.0 Fatty (change of) liver, not elsewhere classified; F15.10 Other stimulant abuse, uncomplicated; E66.9 Obesity, unspecified; Z68.33 Body mass index [BMI] 33.0-33.9, adult; R73.03 Prediabetes; E87.5 Hyperkalemia; R74.01 Elevation of levels of liver transaminase levels; K80.20 Calculus of gallbladder without cholecystitis without obstruction; T43.625A Adverse effect of amphetamines, initial encounter; Z53.29 Procedure and treatment not carried out because of patient's decision for other reasons; Y92.89 Other specified places as the place of occurrence of the external cause
CPT/HCPCS: 36415; 36600; 70200; 71045; 76705; 78226; 80048; 80053; 80061; 80074; 80076; 80307; 81001; 82150; 82248; 82805; 83036; 83605; 83690; 83735; 83880; 84439; 84443; 84484; 85025; 85379; 85610; 85730; 93005; 93306; 96365; 96375; 99291; G0378; J1885; J2405; J2470; J3490